=== PATIENT | female | born 1965 | race Caucasian/White ===

== ENCOUNTER → 2016-07-19 | Outpatient (CLI) | payer BC ==
--- NOTE | 2016-07-19 16:58 | MAMMOGRAPHY REPORT ---
BILATERAL DIGITAL SCREENING MAMMOGRAM TOMOSYNTHESIS WITH CAD: 07/19/2016 CLINICAL HISTORY: Routine screening. Patient has no complaints. TECHNIQUE: Breast tomosynthesis in addition to standard 2D mammography was performed. Current study was also evaluated with a Computer Aided Detection (CAD) system. COMPARISON: Comparison is made to exams dated: 07/14/2015 mammogram and 11/02/2009 mammogram - [facility]. BREAST COMPOSITION: There are scattered areas of fibroglandular density in both breasts. FINDINGS: No suspicious masses, calcifications, or areas of architectural distortion are noted in e ither breast. There has been no significant interval change compared to prior exams. IMPRESSION: ACR BI-RADS CATEGORY 1: NEGATIVE There is no mammographic evidence of malignancy. A 1 year screening mammogram is recommended. The p atient will receive written notification of the results. Approximately 10% of breast cancers are not detected with mammography. A negative mammographic repor t should not delay biopsy if a clinically suggestive mass is present. Jing Bergman M.D. ah/:07/19/2016 15:58:47 Coin Rolling Machine Operator: Ilene Galdamez RT(R)(M), [facility] letter sent: Normal 1/2 BI-RADS Code: ACR BI-RADS Category 1: Negative
== END | disposition home or self-care (01) ==
LOC: C.MAMM 07:45
PROVIDERS: ATTEND Obstetrics & Gynecology
DX: Z12.31 Encounter for screening mammogram for malignant neoplasm of breast (principal)

== ENCOUNTER → 2016-09-26 | Outpatient (CLI) | payer BC ==
[2016-10-02 21:29] LABS: ANTI-CENTROMERE AB <1.0 NEG AI (<1.0 NEG); ANTI-SS-A <1.0 NEG AI (<1.0 NEG); ANTI-SS-B <1.0 NEG AI (<1.0 NEG); DNA ds CRITHIDIA NEGATIVE (NEGATIVE); MICROSOMAL AB <1 IU/ML (<9); Sm Antibody <1.0 NEG AI (<1.0 NEG)
== END | disposition home or self-care (01) ==
LOC: C.LAB 08:31
PROVIDERS: ATTEND Internal Medicine Rheumatology
DX: I73.00 Raynaud's syndrome without gangrene (principal); M79.89 Other specified soft tissue disorders

== ENCOUNTER → 2017-01-26 | Outpatient (CLI) | payer BC | END | disposition home or self-care (01) | LOC: C.PAPS 14:31 | PROVIDERS: ATTEND Obstetrics & Gynecology | DX: Z01.419 Encounter for gynecological examination (general) (routine) without abnormal findings (principal) ==

== ENCOUNTER → 2017-07-24 | Outpatient (CLI) | payer OTHER ==
--- NOTE | 2017-07-25 15:06 | MAMMOGRAPHY REPORT ---
BILATERAL DIGITAL SCREENING MAMMOGRAM TOMOSYNTHESIS WITH CAD: 07/24/2017 CLINICAL HISTORY: Routine screening. Patient has no complaints. TECHNIQUE: Breast tomosynthesis in addition to standard 2D mammography was performed. Current study was also evaluated with a Computer Aided Detection (CAD) system. COMPARISON: Comparison is made to exams dated: 07/19/2016 mammogram, 07/14/2015 mammogram, and 0 mammogram - [facility]. BREAST COMPOSITION: There are scattered areas of fibroglandular density in both breasts. FINDINGS: The parenchymal pattern is unchanged. No developing mass, architectural distortion or clus ter of suspicious microcalcifications is seen in either breast. IMPRESSION: ACR BI-RADS CATEGORY 2: BENIGN There is no mammographic evidence of malignancy. A 1 year screening mammogram is recommended. The pa tient will receive written notification of the results. Approximately 10% of breast cancers are not detected with mammography. A negative mammographic report should not delay biopsy if a clinically suggestive mass is present. Alyssa Hanley M.D. ay/:07/24/2017 15:32:23 [place]: Marline CANO(Donnell)(Irene), [facility] letter sent: Normal 1/2 BI-RADS Code: ACR BI-RADS Category 2: Benign
== END | disposition home or self-care (01) ==
LOC: C.MAMM 07:55
PROVIDERS: ATTEND Obstetrics & Gynecology
DX: Z12.31 Encounter for screening mammogram for malignant neoplasm of breast (principal)

== ENCOUNTER 2024-02-27 21:27 | Inpatient (IN) ==
--- NOTE | 2024-02-27 22:46 | Emergency Department Note ---
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 She initially had some fuzzy and blurry vision. She went to her eye doctor and had a dilated eye exam and pressure testing and everything was okay. She was sent to our ER for the possibility of an ischemic event. Brain MRI and MRI of her right globe were essentially unrevealing. She was discharged. The patient presents back as the vision has worsened. Now she has hardly any vision from the right eye except for the very center of the vision. Her central vision seems green. She also has a slight posterior headache. She does not want any pain medication. There has been no difficulty with speech, she does not have arm or leg weakness. 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 PMHx/PSHx/Social Hx: See Below PHYSICAL EXAM: GENERAL: Patient is in no acute distress. HEENT: No acute trauma, normocephalic atraumatic, mucous membranes moist, no nasal congestion. Both pupils are fairly large and react to light although the right side seems a bit slow to respond to light and there is a slight afferent defect present. Eyegrounds on the right seem intact, I do not see findings of papilledema. NECK: No stridor, no adenopathy, no meningismus, trachea is midline. LUNGS: Clear to auscultation bilaterally, no wheeze, no rhonchi, breath sounds equal. HEART: Without murmurs gallops or rubs, regular rate and rhythm. ABDOMEN: Soft, nontender, no peritonitis. EXTREMITIES: No cyanosis, full range of motion of all the joints without pain or difficulty. NEUROLOGIC: Oriented x 3, no acute motor or sensory deficits, no focal weakness. No speech slur. SKIN: No jaundice, no diaphoresis. DIFFERENTIAL DIAGNOSIS: Retinal detachment, papilledema, optic neuritis, ocular migraine, stroke, among others. EMERGENCY DEPARTMENT PROCEDURES: Visual acuity was 20/25 on the left and 20/100 on the right. Retinal scan was performed and there were no significant abnormalities to the retina per my review. MEDICAL DECISION MAKING: The laboratory work from earlier today was reviewed. There was a normal white count and hemoglobin. There was a normal platelet count. There was no coagulopathy. Creatinine was mildly elevated although at her baseline. No electrolyte abnormality in need of emergent correction. There was no concerning liver enzyme elevation. MRI of the brain and right globe were performed earlier today and were read as essentially unremarkable. Given the persistent headache, a brain CT was done during this ED visit, there was no acute bleed or mass effect. On exam, the patient appeared to have an afferent defect to the right pupil by my testing. This would indicate the possibility of optic neuritis and could explain her visual disturbance. I did perform a retinal scan/Opta scan. There was no significant retinal abnormality per my review. The blood flow appeared adequate. Visual acuity was decreased by our testing in the right eye when compared to the left. I did discuss the case with Dr. Mills of neurology. I spoke with ophthalmology at [facility] as there was no heavy truck technician available from our facility. For now, hospitalization and further workup was felt warranted. I did speak with case management, the on-call hospitalist was consulted. I talked to the patient about all her findings. Of note, the patient was given IV saline 1 L. She was given 6 mg of IV Decadron. She is currently resting comfortably. Prior/Outside records/notes reviewed: Today's ED visit note describing her presentation, workup and plan outpatient. Imaging/x-ray results per my interpretation: Chronic Medical/Social conditions affecting care: None Care/Management discussed with: Neurology-Dr. Mills. Ophthalmology at [facility]-Dr. Gupta. Case management and the on-call hospitalist. Level of care consideration(s): After review of the information above and other included data: --I believe the patient requires escalation of care to admission DISPOSITION: Admission Past Med/Surg History Problem List (Updated 02/28/24 @ 02:17 by Eleazar Pritchard MD) Afferent pupillary defect of right eye (Acute) Headache (Acute) Visual disturbance (Acute) Alteration in vision (Acute) LFT elevation Arthritis Cyst of soft tissue Scleral injection Skin lesions HTN (hypertension) Chronic kidney disease, stage 3a Menopausal symptoms At increased risk for malignant neoplasm of breast MEHRDAD ANTOINE IS 29.7% Breast cancer screening, high risk patient Family history of malignant neoplasm of breast Scattered fibroglandular tissue density of both breasts on mammography Mild obstructive sleep apnea Insomnia Sleep disturbance Other hypersomnia Colon cancer screening Encounter for IUD insertion Medical History Factor 5 Leiden mutation, heterozygous sister had hx clot to brain and mom had DVT Surgical History (Updated 02/07/24 @ 09:36 by Melodie Pollard RN) Hx of biopsy (02/05/24) FINAL DIAGNOSIS In office procedure Dr. Duncan Skin, right lower extremity nodule, excision: - Panniculitis suggestive of erythema nodosum (given clinical history Hx of colonoscopy Unknown date History of arthroscopy right knee H/O section x1 S/P tooth extraction Family History Mother TIA (transient ischemic attack) Superficial thrombophlebitis Hypertension Macular degeneration Clotting disorder Sister Superficial thrombophlebitis Breast cancer, Onset Age: 70 Clotting disorder Father Heart failure Coronary heart disease Prostate cancer, Onset Age: 70 Myocardial infarction Heart disease Hypertension Grandfather (Maternal) Coronary heart disease Grandfather (Paternal) Coronary heart disease Grandmother (Maternal) Breast cancer Uncle Breast cancer PATERNAL Grandfather Stroke Other H/O varicella Osteoporosis Denies family history of Ovarian cancer Social History Smoking Status: Former smoker Age Quit Using Tobacco: 28; Second Hand Exposure: No; Do You Dip or Chew Tobacco: No; Hx Alcohol Use: Yes Alcohol type: beer and wine Alcohol Intake Frequency: 4 or More x per/Week Hx Substance Use: No Preferred Language: Azerbaijani Communication Ability: Effective Visual Impairment: Severely Limited Hearing Ability: Normal Washing Machine Repairer Required: No Beliefs That Will Affect Care: None marital status: Current Living Situation: Spouse current occupational status: employed 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 How many Children do You have: 2 Feels Safe at Home: Yes Diet: regular caffeine: Yes (2 cups daily) during the past year weight has: increased > 10 lbs Dental Care, Regularly: Yes Physical Activity Frequency: 3-4 Times per Week Seatbelt Use: always Do you think of yourself as: straight/heterosexual Gender Identity: Female Assistive Devices: Contacts and Glasses Allergies Allergies Allergy/AdvReac Type Severity Reaction Status Date / Time thimerosal Allergy Intermediate Rash Verified 02/21/24 15:21 doxycycline AdvReac Intermediate Vomiting Verified 02/21/24 15:21 spinach AdvReac Mild Vomiting Verified 02/21/24 15:21 Home Meds Home Medications Medication Instructions Recorded Confirmed calcium 500 mg 1 tab PO BID 02/04/21 02/28/24 (carb,gluconate)-magnesium 250 mg (gluc,oxide) tablet (Calcium Magnesium) losartan 100 mg tablet 100 mg PO QAM 10/24/23 02/28/24 hydroxyzine HCl 25 mg tablet 37.5 mg PO HS 02/28/24 02/28/24 magnesium 250 mg tablet 250 mg PO BID 02/28/24 02/28/24 metoprolol succinate 50 mg 50 mg PO QAM 02/28/24 02/28/24 tablet,extended release 24 hr minocycline 50 mg capsule 50 mg PO BID 02/28/24 02/28/24 omega-3s 360 ge-fuy-khr-fish oil 1 cap PO AMPM 02/28/24 02/28/24 1,200 mg-D3 1,000 unit capsule (Fish Oil-Vit D3) prednisolone acetate 1 % eye 1 drp OPR .PT HOLDING 02/28/24 02/28/24 drops,suspension prednisone 10 mg tablet 15 mg PO QAM 02/28/24 02/28/24 Results & Data (ED) Vital Signs Vital Signs - 24 hr 02/27/24 21:31 02/27/24 23:51 02/28/24 00:11 Temperature 36.3 C L Temperature Source Oral Pulse Rate 61 56 L Pulse Rate [Apical] 55 L Pulse Rate from SpO2 Sensor Respiratory Rate 16 Respiratory Effort / Characteristics Non-Labored Respiratory Depth Normal Respiratory Pattern Regular Blood Pressure 150/90 H Blood Pressure [Left Arm] 128/77 Blood Pressure Mean 110 Blood Pressure Mean [Left Arm] 94 Pulse Oximetry 96 100 Oxygen Delivery Method Room Air Room Air Sepsis Recent Fever Within 48 Hours No Sepsis New/Unexplained Change in Mental Status No Sepsis Action Taken by Nursing No Action Required 02/28/24 00:27 02/28/24 01:00 Temperature Temperature Source Pulse Rate 55 L 58 L Pulse Rate [Apical] Pulse Rate from SpO2 Sensor 56 L 58 L Respiratory Rate 17 18 Respiratory Effort / Characteristics Respiratory Depth Respiratory Pattern Blood Pressure 129/81 Blood Pressure [Left Arm] Blood Pressure Mean 97 Blood Pressure Mean [Left Arm] Pulse Oximetry 98 98 Oxygen Delivery Method Room Air Room Air Sepsis Recent Fever Within 48 Hours Sepsis New/Unexplained Change in Mental Status Sepsis Action Taken by Jail Medications Current Medication List: was personally reviewed by me Laboratory Data Attestation: I reviewed the patient's lab results. Administered Medications Discontinued Medications Dexamethasone Sodium Phosphate (DexamethasonePf 10 Mg/Ml Vial) 6 mg IV NOW ONE Stop: 02/27/24 23:04 Last Admin: 02/27/24 23:45 Dose: 6 mg Documented By: POOJA Sodium Chloride (Nss) 1,000 mls @ 999 mls/hr IV .Q1H1M ONE Stop: 02/28/24 00:03 Last Infusion: 02/28/24 00:51 Dose: Infused Documented By: Admin: 02/27/24 23:45 Dose: 999 mls/hr Documented By: POOJA Imaging Data Radiologist's Impression: Head CT 02/28/24 00:40 EXAM: CT head/brain wo con CLINICAL HISTORY: headache, vision loss TECHNIQUE: An axial non-contrast CT scan of the brain was performed from the skull base to the high parietal region. One of the following dose reduction techniques was utilized for this exam: Automated exposure control, adjustment of the mA and/or kV according to patient size, and use of iterative reconstruction. COMPARISON: MRI dated 02/18/2024. FINDINGS: Brain Parenchyma: There are a few tiny ill-defined [id number] areas noted in the subcortical and deep white matter bilaterally, suggestive of microvascular ischemic changes. Normal attenuation of the cerebral hemispheres, cerebellum, and brainstem. No evidence of acute infarct, hemorrhage, or mass effect. Ventricular System: The ventricular system, cortical sulci, and basal cisterns are prominent and consistent with senile changes. No evidence of subarachnoid hemorrhage or extra-axial fluid collections. Cerebellum and Brainstem: Normal size and signal. No masses, lesions, or areas of abnormal signal. Orbits: Normal appearance of the globes, optic nerves, and extraocular muscles. No evidence of orbital masses. Sinuses: Clear paranasal sinuses. No evidence of sinusitis or mucosal thickening. Mastoid Air Cells: Clear mastoid air cells. No evidence of mastoiditis. Skull and Meninges: Normal skull morphology. IMPRESSION: 1. No evidence of any acute intracranial event on this unenhanced CT examination. Further evaluation with an MRI brain is suggested. 2. Mild age-related involutional and microvascular ischemic changes (Stable). Electronically signed by Mario Banks 02-28-2024 01:40 AM Discharge Plan Visit Data Chief Complaint: Eye Problems Stated Complaint: RT EYE LOSS OF VISION, HEADACHE ED Provider: Eleazar Pritchard Discharge Problem: Visual disturbance, Headache, Afferent pupillary defect of right eye Patient Disposition: Admitted As Inpatient Condition: Fair Forms Stand Alone Forms: My [facility] Prescriptions Prescriptions: No Action losartan 100 mg tablet 100 mg PO QAM Calcium Magnesium 500 mg calcium -250 mg Tablet 1 tab PO BID metoprolol succinate 50 mg tablet extended release 24 hr 50 mg PO QAM [id number]-epa-fish oil-D3 [Fish Oil-Vit D3] 360 mg-1,200 mg -1,000 unit Capsule 1 cap PO AMPM hydroxyzine HCl 25 mg tablet 37.5 mg PO HS minocycline 50 mg capsule 50 mg PO BID Rx Instructions: take with food prednisolone acetate 1 % drops,suspension 1 drp OPR .PT HOLDING prednisone 10 mg tablet 15 mg PO QAM magnesium 250 mg Tablet 250 mg PO BID Referrals Referrals: Abby Fritz [Primary Care Provider] - Discharge Problem: Headache Qualifiers: Headache type: unspecified Headache chronicity pattern: acute headache Intractability: not intractable Qualified Code(s): R51.9 - Headache, unspecified
[2024-02-27] MEDS: dexAMETHasone**PF** 10 MG/ML VIAL IV ONE (23:45)
[2024-02-27] MEDS: SODIUM CHLORIDE 0.9% 1,000 ML IV ONE (23:45)
--- NOTE | 2024-02-28 01:40 | CT Scan Report ---
EXAM: CT head/brain wo con CLINICAL HISTORY: headache, vision loss TECHNIQUE: An axial non-contrast CT scan of the brain was performed from the skull base to the high parietal region. One of the following dose reduction techniques was utilized for this exam: Automated exposure control, adjustment of the mA and/or kV according to patient size, and use of iterative reconstruction. COMPARISON: MRI dated 02/18/2024. FINDINGS: Brain Parenchyma: There are a few tiny ill-defined [id number]-abfhfaivl areas noted in the subcortical and deep white matter bilaterally, suggestive of microvascular ischemic changes. Normal attenuation of the cerebral hemispheres, cerebellum, and brainstem. No evidence of acute infarct, hemorrhage, or mass effect. Ventricular System: The ventricular system, cortical sulci, and basal cisterns are prominent and consistent with senile changes. No evidence of subarachnoid hemorrhage or extra-axial fluid collections. Cerebellum and Brainstem: Normal size and signal. No masses, lesions, or areas of abnormal signal. Orbits: Normal appearance of the globes, optic nerves, and extraocular muscles. No evidence of orbital masses. Sinuses: Clear paranasal sinuses. No evidence of sinusitis or mucosal thickening. Mastoid Air Cells: Clear mastoid air cells. No evidence of mastoiditis. Skull and Meninges: Normal skull morphology. IMPRESSION: 1. No evidence of any acute intracranial event on this unenhanced CT examination. Further evaluation with an MRI brain is suggested. 2. Mild age-related involutional and microvascular ischemic changes (Stable). Electronically signed by Mario Banks 02-28-2024 01:40 AM
--- NOTE | 2024-02-28 02:27 | History & Physical Report ---
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 After seeing her eye doctor in the morning within normal funduscopic examination and intraocular pressures, she was referred to the ED for assessment In the ED in the morning patient underwent an MRI of the brain which was negative except for chronic small vessel disease, and orbit MRI was negative Patient was discharged to home, but with progression of blurry vision and development of a posterior headache, she presented to the ED again this evening Physical examination and symptomatology consistent with acute optic neuritis, with blurred disc margins, decreased Disc ratio on the right side. Patient did have initial CT scan of the head without contrast which was negative for bleed We then ordered MRI of cervical spine, which showed multilevel spondylotic degenerative change, with multilevel central canal stenosis and bilateral foraminal stenosis MRI of brain without contrast was negative MRA cervical spine showed no acute vascular findings Patient had been on prednisone for question of rheumatologic process, and is presently on taper prednisone 15 mg dose Recommended dexamethasone 6 mg IV in ED, and then 6 mg IV every morning Patient had stopped aspirin 81 mg daily 1 week ago, due to gum bleeding while at the dentist, she is advised that she will be restarted on aspirin. Symptom complex included optic neuritis right eye, jaw claudication on the right, Holding oral prednisone Placing on dexamethasone IV as noted above Workup to include the following: Zhes-wzjnpa-rsyygaxp DNA, complement levels, arterial hypercoagulable workup including lupus anticoagulant, cardiolipin antibody, homocystine, and beta-2 microglobulin With history of nodular episcleritis, and spondylitic changes in spine, would be concerned about seronegative spondyloarthropathies, and will order ESR, HLA-B27, with reactive arthritis as a possible diagnosis/Adelaida's syndrome Of note, patient does have a family history of her brother with giant cell arteritis Transaminitis- Initial enzymes ALT 3-4 with follow-up to 19 and then today is 94 AST 189 with follow-up 148 and then today through his 38 initial laboratories / with follow-up 02/11 CK negative making rhabdomyolysis less likely CT scan abdomen pelvis without acute findings liver Order CMV, EBV, ceftaz profile Of note, patient has had in the outpatient setting workup by rheumatology loading negative ASMA, AMA, ANCA, MP3 and proteinase 3 Tick panel with Lyme, anaplasmosis and babesiosis smear and antibody testing negative on 02/05 Respiratory BioFire test 02/05 was negative Add parvovirus, mono, CMV and EBV testing Acute kidney injury superimposed on CKD- Creatinine 1.26, base 1.06, IV fluids as noted above, recheck laboratories in the a.m. Holding hydroxyzine, losartan, but minocycline Continue metoprolol succinate Chronic prednisone use Prednisone is going to be held, he will be placed on dexamethasone IV as noted above address optic neuritis and address potential adrenal insufficiency. History of Present Illness Chief Complaint: The patient reports that about 830 this morning, she developed acute onset of blurry vision in her right eye, and presented to her eye doctor's office for assessment. She underwent a dilated fundus examination, glaucoma testing, and reportedly no acute findings. She was then sent to the emergency department, where she had a brain MRI and orbit MRI which were negative, and she was discharged to home. Her vision continued to worsen as the day progressed, and began to develop a posterior headache, and we presented to the emergency department again this evening. Patient was thought to have an ocular migraine per neurology consult, and [facility] Primary Care Provider: Abby Fritz The patient is a 58-year-old female with a past medical history including CKD stage III AA, mild MAYELIN, insomnia, hypertension, arthritis, transaminitis. She presents to the emergency department with history as noted above. Allergies Allergy/AdvReac Type Severity Reaction Status Date / Time thimerosal Allergy Intermediate Rash Verified 02/21/24 15:21 doxycycline AdvReac Intermediate Vomiting Verified 02/21/24 15:21 spinach AdvReac Mild Vomiting Verified 02/21/24 15:21 Home Medications Medication Instructions Recorded Confirmed Type calcium 500 mg 1 tab PO BID 02/04/21 02/28/24 History (carb,gluconate)-magnesium 250 mg (gluc,oxide) tablet (Calcium Magnesium) losartan 100 mg tablet 100 mg PO QAM 10/24/23 02/28/24 History hydroxyzine HCl 25 mg tablet 37.5 mg PO HS 02/28/24 02/28/24 History magnesium 250 mg tablet 250 mg PO BID 02/28/24 02/28/24 History metoprolol succinate 50 mg 50 mg PO QAM 02/28/24 02/28/24 History tablet,extended release 24 hr minocycline 50 mg capsule 50 mg PO BID 02/28/24 02/28/24 History omega-3s 360 up-nan-rjn-fish oil 1 cap PO AMPM 02/28/24 02/28/24 History 1,200 mg-D3 1,000 unit capsule (Fish Oil-Vit D3) prednisolone acetate 1 % eye 1 drp OPR .PT HOLDING 02/28/24 02/28/24 History drops,suspension prednisone 10 mg tablet 15 mg PO QAM 02/28/24 02/28/24 History Past Med/Surg History Problem List (Updated 02/28/24 @ 06:40 by Brennen Hernandez MD) Acute kidney injury superimposed on CKD Transaminitis Polymyalgia rheumatica GCA (giant cell arteritis) Optic neuritis, right 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 (Acute) Headache (Acute) Visual disturbance (Acute) Alteration in vision (Acute) LFT elevation Arthritis Cyst of soft tissue Scleral injection Skin lesions HTN (hypertension) Chronic kidney disease, stage 3a Menopausal symptoms At increased risk for malignant neoplasm of breast MEHRDAD ANTOINE IS 29.7% Breast cancer screening, high risk patient Family history of malignant neoplasm of breast Scattered fibroglandular tissue density of both breasts on mammography Mild obstructive sleep apnea Insomnia Sleep disturbance Other hypersomnia Colon cancer screening Encounter for IUD insertion Medical History (Updated 02/28/24 @ 06:40 by Brennen Hernandez MD) Erythema nodosum Nodular episcleritis Factor 5 Leiden mutation, heterozygous sister had hx clot to brain and mom had DVT Surgical History (Updated 02/07/24 @ 09:36 by Melodie Pollard RN) Hx of biopsy (02/05/24) FINAL DIAGNOSIS In office procedure Dr. Duncan Skin, right lower extremity nodule, excision: - Panniculitis suggestive of erythema nodosum (given clinical history Hx of colonoscopy Unknown date History of arthroscopy right knee H/O section x1 S/P tooth extraction Family History Mother TIA (transient ischemic attack) Superficial thrombophlebitis Hypertension Macular degeneration Clotting disorder Sister Superficial thrombophlebitis Breast cancer, Onset Age: 70 Clotting disorder Father Heart failure Coronary heart disease Prostate cancer, Onset Age: 70 Myocardial infarction Heart disease Hypertension Grandfather (Maternal) Coronary heart disease Grandfather (Paternal) Coronary heart disease Grandmother (Maternal) Breast cancer Uncle Breast cancer PATERNAL Grandfather Stroke Other H/O varicella Osteoporosis Denies family history of Ovarian cancer Social History Smoking Status: Former smoker Age Quit Using Tobacco: 28; Second Hand Exposure: No; Do You Dip or Chew Tobacco: No; Hx Alcohol Use: Yes Alcohol type: wine Alcohol Intake Frequency: 4 or More x per/Week Hx Substance Use: No Preferred Language: Croatian Communication Ability: Effective Visual Impairment: Severely Limited Hearing Ability: Normal Instructional Interventionist Required: No Beliefs That Will Affect Care: None marital status: Current Living Situation: Spouse current occupational status: employed 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 How many Children do You have: 2 Other Information That Helps Us Care for You: No Feels Safe at Home: Yes Safety Concerns: Feels Safe At This Time Diet: regular caffeine: Yes (2 cups daily) during the past year weight has: increased > 10 lbs Dental Care, Regularly: Yes Physical Activity Frequency: 3-4 Times per Week Seatbelt Use: always Do you think of yourself as: straight/heterosexual Gender Identity: Female Assistive Devices: None Review of Systems Review of Systems: The patient denies chest pain, palpitations, shortness of breath, dyspnea on exertion, cough, lower extremity swelling, sore throat, fevers, chills, sweats, nausea, vomiting, diarrhea , constipation, abdominal pain, pelvic pain, blood in urine or stool, dysuria, urinary frequency or urgency, memory loss, loss of consciousness, rash, abnormal bruising or bleeding, imbalance, focal or generalized weakness, numbness or tingling in arms or legs, generalized arthralgias or myalgias, back or neck pain, or night sweats. The review of systems is otherwise negative other than for that already noted above, and at least 10 systems have been reviewed. Physical Exam 2 Physical Exam: The patient is awake, alert and oriented 3, well developed and well nourished, normocephalic and atraumatic, lying in bed and in no acute distress. HEENT--EOMI, mucous membranes and oropharynx dry. Pupillary examination with partially dilated pupils, with Fabián Adele pupil on the right and reversed microscopic pupil on the left Neck--supple. No JVD. No bruits. Thyroid normal, trachea midline, no adenopathy. Heart--normal S1 and S2. No murmurs, rubs or gallops. Lungs--clear bilaterally, no respiratory distress, no accessory muscle use. Abdomen--normal bowel sounds and soft. Nontender. Nondistended, no hernias or masses, no organomegaly. Extremities--no cyanosis or clubbing. No edema. There are good distal pulses b/l. Dermatologic--normal skin turgor, normal color, no abnormal lymph nodes, no rash. Neurologic--cranial nerves II through XII grossly intact. Rheumatologic--normal range of motion. Psychiatric--normal affect. Ophthalmoscopic examination--left eye with normal cup-to-disc ratio 0.4/0.4, and an sharp disc margins. Right eye with decreased cup-to-disc ratio of 0.1/ 0.1 and hazy disc margins Results & Data Results & Data Vital Signs (Past 12 Hours) Vital Signs Temp Pulse Pulse Resp BP BP Pulse Ox 02/28/24 02:00 63 16 143/88 H 96 02/28/24 01:00 58 L 18 129/81 98 02/28/24 00:27 55 L 17 98 02/28/24 00:11 56 L 02/27/24 23:51 55 L 16 128/77 100 02/27/24 21:31 36.3 C L 61 150/90 H 96 O2 Del Method 02/28/24 02:00 Room Air 02/28/24 01:00 Room Air 02/28/24 00:27 Room Air 02/28/24 00:11 02/27/24 23:51 Room Air 02/27/24 21:31 Room Air Laboratory Results Laboratory Results WBC 10.44 K/ul (4.8-10.8) 02/28/24 02:11 RBC 4.70 M/uL (4.20-5.40) 02/28/24 02:11 Hgb 13.6 g/dl (12.0-16.0) 02/28/24 02:11 Hct 42.0 % (37.0-47.0) 02/28/24 02:11 MCV 89.4 fL (80.0-100.0) 02/28/24 02:11 MCH 28.9 pg (25.0-34.0) 02/28/24 02:11 MCHC 32.4 g/dL (32.0-36.0) 02/28/24 02:11 RDW Std Deviation 45.1 fL (36.4-46.3) 02/28/24 02:11 RDW Coeff of Tao 13.9 % (11.5-14.5) 02/28/24 02:11 Plt Count 193 K/uL (130-400) 02/28/24 02:11 MPV 9.0 fL (9.4-12.4) L 02/28/24 02:11 Immature Gran % (Auto) 0.5 % 02/28/24 02:11 Neut % (Auto) 85.0 % 02/28/24 02:11 Lymph % (Auto) 10.9 % 02/28/24 02:11 [place] % (Auto) 2.4 % 02/28/24 02:11 Eos % (Auto) 0.9 % 02/28/24 02:11 Baso % (Auto) 0.3 % 02/28/24 02:11 Neut # (Auto) 8.88 K/uL (1.40-6.50) H 02/28/24 02:11 Lymph # (Auto) 1.14 K/uL (1.20-3.40) L 02/28/24 02:11 [place] # (Auto) 0.25 K/uL (0.11-0.59) 02/28/24 02:11 Eos # (Auto) 0.09 K/uL (0.00-0.50) 02/28/24 02:11 Baso # (Auto) 0.03 K/uL (0.00-0.20) 02/28/24 02:11 Immature Gran # (Auto) 0.05 K/uL (0.01-0.20) 02/28/24 02:11 ESR 21 mm/hr (0-30) 02/28/24 02:11 Sodium 141 mmol/L (136-145) 02/28/24 02:11 Potassium 4.0 mmol/L (3.5-5.1) 02/28/24 02:11 Chloride 109 mmol/L (98-107) H 02/28/24 02:11 Carbon Dioxide 26 mmol/L (21-32) 02/28/24 02:11 Anion Gap 6 (3-11) 02/28/24 02:11 BUN 17 mg/dl (6-23) 02/28/24 02:11 Creatinine 1.17 mg/dl (0.6-1.2) 02/28/24 02:11 Est Cr Clr Drug Dosing 57.7 ml/min 02/28/24 02:11 eGFR 54.43 02/28/24 02:11 BUN/Creatinine Ratio 14.5 (10-20) 02/28/24 02:11 Glucose 113 mg/dl (70-99(Fasting)) H 02/28/24 02:11 Calcium 8.8 mg/dl (8.6-10.3) 02/28/24 02:11 Magnesium 2.3 mg/dl (1.7-2.4) 02/28/24 02:11 Total Bilirubin 0.7 mg/dl (0.2-1.0) 02/28/24 02:11 AST 32 U/L (13-39) 02/28/24 02:11 ALT 83 U/L (7-52) H 02/28/24 02:11 Alkaline Phosphatase 63 U/L (34-104) 02/28/24 02:11 Total Creatine Kinase 28 U/L (26-192) 02/28/24 02:11 Total Protein 6.4 gm/dl (6.0-8.3) 02/28/24 02:11 Albumin 3.7 gm/dl (3.4-5.0) 02/28/24 02:11 Globulin 2.7 gm/dl (2.5-4.0) 02/28/24 02:11 Albumin/Globulin Ratio 1.4 (0.9-2) 02/28/24 02:11 Triglycerides 173 mg/dl (0-150) H 02/28/24 02:11 Cholesterol 190 mg/dl (0-200) 02/28/24 02:11 LDL Cholesterol, Calc 108 mg/dl 02/28/24 02:11 VLDL Cholesterol, Calc 35 mg/dl (0-30) H 02/28/24 02:11 HDL Cholesterol 47 mg/dl 02/28/24 02:11 Cholesterol/HDL Ratio 4.0 (0-5) 02/28/24 02:11 Hep Bs Antigen Negative (Negative) 02/28/24 02:11 Hepatitis C Antibody Negative (Negative) 02/28/24 02:[address] 02/28/24 00:40 EXAM: CT head/brain wo con CLINICAL HISTORY: headache, vision loss TECHNIQUE: An axial non-contrast CT scan of the brain was performed from the skull base to the high parietal region. One of the following dose reduction techniques was utilized for this exam: Automated exposure control, adjustment of the mA and/or kV according to patient size, and use of iterative reconstruction. COMPARISON: MRI dated 02/18/2024. FINDINGS: Brain Parenchyma: There are a few tiny ill-defined usq-cw-lduhzduvs areas noted in the subcortical and deep white matter bilaterally, suggestive of microvascular ischemic changes. Normal attenuation of the cerebral hemispheres, cerebellum, and brainstem. No evidence of acute infarct, hemorrhage, or mass effect. Ventricular System: The ventricular system, cortical sulci, and basal cisterns are prominent and consistent with senile changes. No evidence of subarachnoid hemorrhage or extra-axial fluid collections. Cerebellum and Brainstem: Normal size and signal. No masses, lesions, or areas of abnormal signal. Orbits: Normal appearance of the globes, optic nerves, and extraocular muscles. No evidence of orbital masses. Sinuses: Clear paranasal sinuses. No evidence of sinusitis or mucosal thickening. Mastoid Air Cells: Clear mastoid air cells. No evidence of mastoiditis. Skull and Meninges: Normal skull morphology. IMPRESSION: 1. No evidence of any acute intracranial event on this unenhanced CT examination. Further evaluation with an MRI brain is suggested. 2. Mild age-related involutional and microvascular ischemic changes (Stable). Electronically signed by Mario Banks 02-28-2024 01:40 AM Cervical Spine MRI 02/28/24 02:06 EXAM: MR cervical spine wo con CLINICAL HISTORY: right eye loss of vision that started around 5 am on 02/26. patient was in the ED on 02/26 and had MRI brain/orbits done. patient returned to ED stating symptoms are worsening. pain posterior head. no known recent injury. CT head 02/27. MRI brain and orbits 02/26. IMAGES 211 ROOM A9B TECHNIQUE: MRI of the cervical spine was performed without contrast. Sequences obtained include sagittal T1-weighted, T2-weighted, and axial T1, T2-weighted sequences. COMPARISON: None. FINDINGS: Vertebral Alignment: A straightened cervical curve implies an element of muscle spasm. Normal alignment of the cervical spine without evidence of fracture or subluxation. Vertebral Bodies and Intervertebral Discs: Multilevel reduced intervertebral disc height and hydration are noted. Anteromarginal bone hypertrophy of vertebral end plates. Multilevel C4, C5, and C7 fatty subchondral degenerative changes (MODIC II). C6 mixed oedematous and fatty subchondral degenerative changes (MODIC I, II). Normal vertebral body height and alignment. Iatad-cr-fnoff analysis: C2-C3: There is no significant disc pathology. Normal morphology of the ligamentum flava. No arthropathy of the uncovertebral and zygapophyseal joints. No significant spinal canal stenosis C3-C4: posterior disc bulge inclined to the left side, measuring 2.7 mm, indenting the theca, along with osteophyte complex and neurocentral arthropathy causing mild central spinal canal, left moderate and right mild foraminal stenosis, compressing the left exiting nerve roots. Normal morphology of the ligamentum flava. No arthropathy of zygapophyseal joints. C4-C5: posterior disc bulge inclined to the right side with a right foraminal protrusion, measuring 2.2 mm, indenting the theca, along with osteophyte complex and neurocentral arthropathy causing mild central spinal canal, right moderate and left mild foraminal stenosis, compressing the right exiting nerve roots. Normal morphology of the ligamentum flava. No arthropathy of zygapophyseal joints. C5-C6: posterior disc bulge, measuring 2.4 mm, indenting the theca, along with osteophyte complex and neurocentral arthropathy causing mild central spinal canal, Bilateral mild to moderate foraminal stenosis, indenting the exiting nerve roots. Normal morphology of the ligamentum flava. No arthropathy of zygapophyseal joints. C6-C7: posterior disc bulge inclined to the left side, measuring 2.2 mm, indenting the theca, along with osteophyte complex and neurocentral arthropathy causing mild central spinal canal, left moderate and right mild foraminal stenosis, compressing the left exiting nerve roots. Normal morphology of the ligamentum flava. No arthropathy of zygapophyseal joints. C7-T1: There is no significant disc pathology. Normal morphology of the ligamentum flava. No arthropathy of the uncovertebral and zygapophyseal joints. No significant spinal canal stenosis. Spinal Cord and Nerve Roots: The spinal cord demonstrates normal signal intensity and caliber. No evidence of cord compression or intradural pathology. Soft Tissues: Paraspinal soft tissues appear normal without evidence of abnormal signal intensity or mass lesions. IMPRESSION: 1. A straightened cervical curve implies an element of muscle spasm. 2. Multilevel C4, C5, and C7 fatty subchondral degenerative changes (MODIC II).C6 mixed oedematous and fatty subchondral degenerative changes (MODIC I, II). 3. Advanced spondylodegenerative changes of the cervical spine, with multilevel disc bulges/osteophyte complex, together with neurocentral arthropathic changes, causing multilevel of the central canal and bilateral foraminal stenosis, as above described. Electronically signed by Mario Banks 02-28-2024 04:32 AM Head MRA 02/28/24 02:06 EXAM: MR angio head wo con CLINICAL HISTORY: right eye loss of vision that started around 5 am on 02/26. patient was in the ED on 02/26 and had MRI brain/orbits done. patient returned to ED stating symptoms are worsening. pain posterior head. no known recent injury. CT head 02/27. MRI brain and orbits 02/26. images 527 room A9B TECHNIQUE: MR angiography of the head ([place]) was performed by 3D TOF technique. MPR images were obtained. COMPARISON: the CT02/27/2024, and MRI 02/18/2024 have been reviewed. FINDINGS: Intracranial Arteries: Normal visualization of the intracranial arteries. No evidence of stenosis, occlusion, or aneurysms. Normal flow signal in the anterior, middle, and posterior cerebral arteries. Normal flow signal in the basilar and vertebral arteries. 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 Hypoplastic A1 of the left GILL. Complete and normally configured [place]. No evidence of vascular malformations or aneurysms. Venous Sinuses: Normal visualization of the major dural venous sinuses. No evidence of venous sinus thrombosis. IMPRESSION: 1. Normal MRA of the head without contrast. 2. No evidence of significant vascular abnormalities. Electronically signed by Mario Banks 02-28-2024 04:09 AM Neck MRA 02/28/24 02:06 EXAM: MR angio neck wo/w con CLINICAL HISTORY: right eye loss of vision that started around 5 am on 02/26. patient was in the ED on 02/26 and had MRI brain/orbits done. patient returned to ED stating symptoms are worsening. pain posterior head. no known recent injury. injected 8cc gadavist through existing iv right arm uneventful at 0400. CT head 02/27. MRI brain and orbits 02/26. images 943 had a coil issue when doing carotids. unable to correct for signal loss during carotid exam. best scan possible at this time. TECHNIQUE: Multiplanar Angiography imaging was performed using [id number] (TOF) sequences and post-contrast sequences. Intravenous 8cc Gadavist contrast was administered. COMPARISON: None. FINDINGS: Carotid Arteries: Normal visualization of the common carotid arteries, internal carotid arteries, and external carotid arteries bilaterally. No evidence of stenosis, occlusion, or aneurysm. Normal flow signal. Normal enhancement post-contrast. Vertebral Arteries: Normal visualization of the vertebral arteries bilaterally. No evidence of stenosis, occlusion, or aneurysm. Normal flow signal. Normal enhancement post-contrast. Dominant left one. Subclavian Arteries: Normal visualization of the subclavian arteries bilaterally. No evidence of stenosis, occlusion, or aneurysm. Normal enhancement post-contrast. IMPRESSION: 1. Unremarkable MRA of the neck with and without contrast. 2. No evidence of significant vascular abnormalities. 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
[2024-02-28 02:35] LABS: Basophils # (auto) 0.03 K/uL (0.00-0.20); Basophils % (auto) 0.3 %; Eosinophils # (auto) 0.09 K/uL (0.00-0.50); Eosinophils % (auto) 0.9 %; Hemoglobin 13.6 g/dl (12.0-16.0); Immature Granulocytes # (auto) 0.05 K/uL (0.01-0.20); Immature Granulocytes % (auto) 0.5 %; Lymphocytes # (auto) 1.14 K/uL (1.20-3.40); Lymphocytes % (auto) 10.9 %; Mean Corpuscular Hemoglobin 28.9 pg (25.0-34.0); Mean Corpuscular Hgb Conc 32.4 g/dL (32.0-36.0); Mean Corpuscular Volume 89.4 fL (80.0-100.0); Monocytes # (auto) 0.25 K/uL (0.11-0.59); Monocytes % (auto) 2.4 %; Neutrophils # (auto) 8.88 K/uL (1.40-6.50); Platelet Count 193 K/uL (130-400); RDW Coefficient of Variation 13.9 % (11.5-14.5); RDW Standard Deviation 45.1 fL (36.4-46.3); White Blood Count 10.44 K/ul (4.8-10.8)
[2024-02-28] MEDS: ASPIRIN 81 MG ECTAB PO STA (02:36)
[2024-02-28 02:56] LABS: Albumin Globulin Ratio 1.4 (0.9-2); Albumin Level 3.7 gm/dl (3.4-5.0); BUN Creatinine Ratio 14.5 (10-20); Bilirubin,Total 0.7 mg/dl (0.2-1.0); Calcium 8.8 mg/dl (8.6-10.3); Creatinine Clr Calc Pharmacy 57.7 ml/min; Globulin 2.7 gm/dl (2.5-4.0); Magnesium 2.3 mg/dl (1.7-2.4); Total Protein 6.4 gm/dl (6.0-8.3)
[2024-02-28 03:25] LABS: Hep B Surface Ag with confirm Negative (Negative)
[2024-02-28 03:31] LABS: Hep C Ab Rflx HepCQuant RNA Negative (Negative)
[2024-02-28] MEDS: GADOBUTROL 65ML VIAL IV ONE (04:01)
--- NOTE | 2024-02-28 04:09 | Magnetic Resonance Report ---
EXAM: MR angio head wo con CLINICAL HISTORY: right eye loss of vision that started around 5 am on 02/26. patient was in the ED on 02/26 and had MRI brain/orbits done. patient returned to ED stating symptoms are worsening. pain posterior head. no known recent injury. CT head 02/27. MRI brain and orbits 02/26. images 527 room A9B TECHNIQUE: MR angiography of the head ([place]) was performed by 3D TOF technique. MPR images were obtained. COMPARISON: the CT02/27/2024, and MRI 02/18/2024 have been reviewed. FINDINGS: Intracranial Arteries: Normal visualization of the intracranial arteries. No evidence of stenosis, occlusion, or aneurysms. Normal flow signal in the anterior, middle, and posterior cerebral arteries. Normal flow signal in the basilar and vertebral arteries. 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 Hypoplastic A1 of the left GILL. Complete and normally configured [place]. No evidence of vascular malformations or aneurysms. Venous Sinuses: Normal visualization of the major dural venous sinuses. No evidence of venous sinus thrombosis. IMPRESSION: 1. Normal MRA of the head without contrast. 2. No evidence of significant vascular abnormalities. Electronically signed by Mario Banks 02-28-2024 04:09 AM
--- NOTE | 2024-02-28 04:32 | Magnetic Resonance Report ---
EXAM: MR cervical spine wo con CLINICAL HISTORY: right eye loss of vision that started around 5 am on 02/26. patient was in the ED on 02/26 and had MRI brain/orbits done. patient returned to ED stating symptoms are worsening. pain posterior head. no known recent injury. CT head 02/27. MRI brain and orbits 02/26. IMAGES 211 ROOM A9B TECHNIQUE: MRI of the cervical spine was performed without contrast. Sequences obtained include sagittal T1-weighted, T2-weighted, and axial T1, T2-weighted sequences. COMPARISON: None. FINDINGS: Vertebral Alignment: A straightened cervical curve implies an element of muscle spasm. Normal alignment of the cervical spine without evidence of fracture or subluxation. Vertebral Bodies and Intervertebral Discs: Multilevel reduced intervertebral disc height and hydration are noted. Anteromarginal bone hypertrophy of vertebral end plates. Multilevel C4, C5, and C7 fatty subchondral degenerative changes (MODIC II). C6 mixed oedematous and fatty subchondral degenerative changes (MODIC I, II). Normal vertebral body height and alignment. Kxngc-ap-[id number] analysis: C2-C3: There is no significant disc pathology. Normal morphology of the ligamentum flava. No arthropathy of the uncovertebral and zygapophyseal joints. No significant spinal canal stenosis C3-C4: posterior disc bulge inclined to the left side, measuring 2.7 mm, indenting the theca, along with osteophyte complex and neurocentral arthropathy causing mild central spinal canal, left moderate and right mild foraminal stenosis, compressing the left exiting nerve roots. Normal morphology of the ligamentum flava. No arthropathy of zygapophyseal joints. C4-C5: posterior disc bulge inclined to the right side with a right foraminal protrusion, measuring 2.2 mm, indenting the theca, along with osteophyte complex and neurocentral arthropathy causing mild central spinal canal, right moderate and left mild foraminal stenosis, compressing the right exiting nerve roots. Normal morphology of the ligamentum flava. No arthropathy of zygapophyseal joints. C5-C6: posterior disc bulge, measuring 2.4 mm, indenting the theca, along with osteophyte complex and neurocentral arthropathy causing mild central spinal canal, Bilateral mild to moderate foraminal stenosis, indenting the exiting nerve roots. Normal morphology of the ligamentum flava. No arthropathy of zygapophyseal joints. C6-C7: posterior disc bulge inclined to the left side, measuring 2.2 mm, indenting the theca, along with osteophyte complex and neurocentral arthropathy causing mild central spinal canal, left moderate and right mild foraminal stenosis, compressing the left exiting nerve roots. Normal morphology of the ligamentum flava. No arthropathy of zygapophyseal joints. C7-T1: There is no significant disc pathology. Normal morphology of the ligamentum flava. No arthropathy of the uncovertebral and zygapophyseal joints. No significant spinal canal stenosis. Spinal Cord and Nerve Roots: The spinal cord demonstrates normal signal intensity and caliber. No evidence of cord compression or intradural pathology. Soft Tissues: Paraspinal soft tissues appear normal without evidence of abnormal signal intensity or mass lesions. IMPRESSION: 1. A straightened cervical curve implies an element of muscle spasm. 2. Multilevel C4, C5, and C7 fatty subchondral degenerative changes (MODIC II).C6 mixed oedematous and fatty subchondral degenerative changes (MODIC I, II). 3. Advanced spondylodegenerative changes of the cervical spine, with multilevel disc bulges/osteophyte complex, together with neurocentral arthropathic changes, causing multilevel of the central canal and bilateral foraminal stenosis, as above described. Electronically signed by Mario Banks 02-28-2024 04:32 AM
[2024-02-28] MEDS ORDERED: prednisoLONE acetate 1% OP SUSP 5 ML BTL OPR SCH (04:44)
[2024-02-28] MEDS ORDERED: ACETAMINOPHEN 325 MG TAB PO PRN (04:44)
[2024-02-28] MEDS ORDERED: [UNRECOGNIZED DRUG - OTHER] PO SCH (04:44)
[2024-02-28] MEDS: dexAMETHasone 6 MG in SYRINGE 0 ML IV SCH (05:29)
--- NOTE | 2024-02-28 05:29 | Magnetic Resonance Report ---
EXAM: MR angio neck wo/w con CLINICAL HISTORY: right eye loss of vision that started around 5 am on 02/26. patient was in the ED on 02/26 and had MRI brain/orbits done. patient returned to ED stating symptoms are worsening. pain posterior head. no known recent injury. injected 8cc gadavist through existing iv right arm uneventful at 0400. CT head 02/27. MRI brain and orbits 02/26. images 943 had a coil issue when doing carotids. unable to correct for signal loss during carotid exam. best scan possible at this time. TECHNIQUE: Multiplanar Angiography imaging was performed using cxmv-sl-aphlal (TOF) sequences and post-contrast sequences. Intravenous 8cc Gadavist contrast was administered. COMPARISON: None. FINDINGS: Carotid Arteries: Normal visualization of the common carotid arteries, internal carotid arteries, and external carotid arteries bilaterally. No evidence of stenosis, occlusion, or aneurysm. Normal flow signal. Normal enhancement post-contrast. Vertebral Arteries: Normal visualization of the vertebral arteries bilaterally. No evidence of stenosis, occlusion, or aneurysm. Normal flow signal. Normal enhancement post-contrast. Dominant left one. Subclavian Arteries: Normal visualization of the subclavian arteries bilaterally. No evidence of stenosis, occlusion, or aneurysm. Normal enhancement post-contrast. IMPRESSION: 1. Unremarkable MRA of the neck with and without contrast. 2. No evidence of significant vascular abnormalities. Electronically signed by Mario Banks 02-28-2024 05:28 AM
[2024-02-28 07:25] LABS: Estimated Average Glucose 126 mg/dl
[2024-02-28] MEDS: MAGNESIUM OXIDE 400 MG TAB PO SCH (08:44)
[2024-02-28] MEDS: METOPROLOL SUCC 50MG EXT REL TAB PO SCH (08:44)
[2024-02-28] MEDS ORDERED: NON-FORMULARY MEDICATION (Calcium Carb,Gluc-Mag Gluc,Ox [Calcium Magnesium] 500 mg calcium PO SCH (09:00)
--- NOTE | 2024-02-28 09:29 | Neurology Consultation ---
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 no pain with eye movements. CRP very high. pt with rAPD rt eye. pt with interestingly had covid infection in Dec 2023 and she feels everything went bad since then with joint pain and yesterday with acute gradual painless vision loss on rt eye. mri orbit and mri brain all negative. MRA head/neck negative. pt this morning only seeing light on rt eye and no vision even on finger counting. chart reviewed. admission: The patient reports that about 830 this morning, she developed acute onset of blurry vision in her right eye, and presented to her eye doctor's office for assessment. She underwent a dilated fundus examination, glaucoma testing, and reportedly no acute findings. She was then sent to the emergency department, where she had a brain MRI and orbit MRI which were negative, and she was discharged to home. Her vision continued to worsen as the day progressed, and began to develop a posterior headache, and we presented to the emergency department again this evening. Patient was thought to have an ocular migraine per neurology consult, and [facility]. Primary Care Provider: Abby Fritz The patient is a 58-year-old female with a past medical history including CKD stage III AA, mild MAYELIN, insomnia, hypertension, arthritis, transaminitis. She presents to the emergency department with history as noted above. Allergies Allergy/AdvReac Type Severity Reaction Status Date / Time thimerosal Allergy Intermediate Rash Verified 02/21/24 15:21 doxycycline AdvReac Intermediate Vomiting Verified 02/21/24 15:21 spinach AdvReac Mild Vomiting Verified 02/21/24 15:21 Home Medications Medication Instructions Recorded Confirmed Type calcium 500 mg 1 tab PO BID 02/04/21 02/28/24 History (carb,gluconate)-magnesium 250 mg (gluc,oxide) tablet (Calcium Magnesium) losartan 100 mg tablet 100 mg PO QAM 10/24/23 02/28/24 History hydroxyzine HCl 25 mg tablet 37.5 mg PO HS 02/28/24 02/28/24 History magnesium 250 mg tablet 250 mg PO BID 02/28/24 02/28/24 History metoprolol succinate 50 mg 50 mg PO QAM 02/28/24 02/28/24 History tablet,extended release 24 hr minocycline 50 mg capsule 50 mg PO BID 02/28/24 02/28/24 History omega-3s 360 gn-mtc-kyd-fish oil 1 cap PO AMPM 02/28/24 02/28/24 History 1,200 mg-D3 1,000 unit capsule (Fish Oil-Vit D3) prednisolone acetate 1 % eye 1 drp OPR .PT HOLDING 02/28/24 02/28/24 History drops,suspension prednisone 10 mg tablet 15 mg PO QAM 02/28/24 02/28/24 History Patient History Medical History (Updated 02/28/24 @ 06:40 by Brennen Hernandez MD) Erythema nodosum Nodular episcleritis Factor 5 Leiden mutation, heterozygous sister had hx clot to brain and mom had DVT Surgical History (Updated 02/07/24 @ 09:36 by Melodie Pollard RN) Hx of biopsy (02/05/24) FINAL DIAGNOSIS In office procedure Dr. Duncan Skin, right lower extremity nodule, excision: - Panniculitis suggestive of erythema nodosum (given clinical history Hx of colonoscopy Unknown date History of arthroscopy right knee H/O section x1 S/P tooth extraction Family History Mother TIA (transient ischemic attack) Superficial thrombophlebitis Hypertension Macular degeneration Clotting disorder Sister Superficial thrombophlebitis Breast cancer, Onset Age: 70 Clotting disorder Father Heart failure Coronary heart disease Prostate cancer, Onset Age: 70 Myocardial infarction Heart disease Hypertension Grandfather (Maternal) Coronary heart disease Grandfather (Paternal) Coronary heart disease Grandmother (Maternal) Breast cancer Uncle Breast cancer PATERNAL Grandfather Stroke Other H/O varicella Osteoporosis Denies family history of Ovarian cancer Social History Smoking Status: Former smoker Age Quit Using Tobacco: 28; Second Hand Exposure: No; Do You Dip or Chew Tobacco: No; Hx Alcohol Use: Yes Alcohol type: wine Alcohol Intake Frequency: 4 or More x per/Week Hx Substance Use: No Preferred Language: [place] Communication Ability: Effective Visual Impairment: Severely Limited Hearing Ability: Normal Soil Science Professor Required: No Beliefs That Will Affect Care: None marital status: Current Living Situation: Spouse current occupational status: employed 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 How many Children do You have: 2 Other Information That Helps Us Care for You: No Feels Safe at Home: Yes Safety Concerns: Feels Safe At This Time Diet: regular caffeine: Yes (2 cups daily) during the past year weight has: increased > 10 lbs Dental Care, Regularly: Yes Physical Activity Frequency: 3-4 Times per Week Seatbelt Use: always Do you think of yourself as: straight/heterosexual Gender Identity: Female Assistive Devices: None Exam (Neuro) Physical Exam: HEENT: normocephalic grossly Neuro: Mental: AOx4, fluent speech, normal comprehension, no apraxia, no L/R confusion, no neglect CN: dilated 5 mm b/l but reactive with noted for sluggish rt pupil response with rAPD. left pupil brisk responses. no vision on rt eye with only able to see some dull light perception. 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 interestingly, there are few case reports of covid infection related triggering arteritic AION. Recommendations: pt on steroid tx. continue work up and tx as now. rheum consult and ophthalmology consult in the near future. not much add from neurology as this is a rheumatological condition call again if new question. Chart reviewed I have spent more than 50% educating patient about potential diagnosis and neurological evaluation and coordinating care with patient's treatment team. Total time spent (including chart review and coordination of care): 60 min (this includes chart review). Results & Data Vital Signs (Past 12 Hours) Vital Signs Temp Pulse Pulse Resp BP BP Pulse Ox 02/28/24 07:15 58 L 02/28/24 07:05 36.4 C L 65 16 114/75 98 02/28/24 04:44 36.5 C 65 16 124/84 98 02/28/24 04:40 65 02/28/24 04:35 02/28/24 04:35 36.5 C 60 18 124/84 98 02/28/24 02:30 65 17 110/77 96 02/28/24 02:19 60 17 133/86 97 02/28/24 02:00 63 16 143/88 H 96 02/28/24 01:00 58 L 18 129/81 98 02/28/24 00:27 55 L 17 98 02/28/24 00:11 56 L 02/27/24 23:51 55 L 16 128/77 100 02/27/24 21:31 36.3 C L 61 150/90 H 96 O2 Del Method 02/28/24 07:15 02/28/24 07:05 Room Air 02/28/24 04:44 Room Air 02/28/24 04:40 02/28/24 04:35 Room Air 02/28/24 04:35 Room Air 02/28/24 02:30 Room Air 02/28/24 02:19 Room Air 02/28/24 02:00 Room Air 02/28/24 01:00 Room Air 02/28/24 00:27 Room Air 02/28/24 00:11 02/27/24 23:51 Room Air 02/27/24 21:31 Room Air PG Care Time/CCT Total # of Minutes Spent Total Time Spent with Patient: Total time spent is greater than 50% in coordination of care (as documented) at patient's floor/unit and/or counseling patient: Coding Level of Care Code 60780 IN/OBS CONSULT LVL 4,60M Diagnoses 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
--- NOTE | 2024-02-28 13:11 | Communication Note ---
Date of Service: February 28, 2024 Vision may be a little poorer than yesterday - only has slight vision R periphery, no longer greenish. No eye pain and slight posterior headache resolv ed. No vision changes L eye. Continues to have bilateral jaw pain with chewing but improved compared to last month. Did not ever have pain in area of temples. Had tapered from 20 mg prednisone to 15 mg on Sunday She saw optometry yesterday - Dr. Wilson at [facility], by report that exam was normal and retina scan in ED My colleague's exam this AM with Fabián Adele pupil on the right, "Ophthalmoscopic examination--left eye with normal cup-to-disc ratio 0.4/0.4, and an sharp disc margins. Right eye with decreased cup-to-disc ratio of 0.1/ 0.1 and hazy disc margins" Reviewed MRI brain/orbit - with some hyperintense T2/FLAIR foci throughout likely microvascular disease vs less likely demyelinating progess, MRA head/neck unremarkable, MRI cspine with advanced multilevel spondylodegenerative changes including some areas of mild cervical spinal stenosis and areas of [id number] neuroforaminal stenoses. Extensive serologic workup pending as per Dr. Smith's note Neurologist consulted this AM did not find neurological cause for vision loss, concern is for AION perhaps associated with GCA Inflammatory markers were very elevated last month but improved on prednisone ESR 41 -->21 and CRP 60.9--> 2.76 Plan: -continue dexamethasone -I discussed with her Engine Oiler Dr. Del Real -consult ophthalmology - I have left message with Dr. Blake who is absorption plant operator -updated Deepali and her with the plan of care
[2024-02-28] MEDS ORDERED: POLYETHYLENE (MIRALAX) 17 GM PACK PO PRN (14:35)
[2024-02-28] MEDS ORDERED: methylPREDNISolone 125 MG/2 ML VIAL IV STA (14:35)
--- NOTE | 2024-02-28 14:52 | Rheumatology Consultation ---
Rheumatology Consultation DOS February 28, [address] Ambrocio Attending Physician Dr. Ambrocio Reason for Consultation Acute vision loss Assessment & Plan (1) Acute visual loss: This patient previously had a rather robust systemic inflammatory process without evidence of a well-defined vasculitis or source beyond reactive changes from recent COVID infection Inflammatory markers have improved significantly since starting prednisone However, acute vision loss raises concern for possibility of acute ischemic optic neuritis from giant cell arteritis. She reports a history of scalp tenderness when she had her hair washed on 02/18. Some jaw discomfort but more of a discomfort when she fully opens her jaw without significant claudication history although she did indicate previously that there was some discomfort when chewing foods (unable to determine if it is related to a mechanical jaw process versus true jaw claudication). Await input from ophthalmology to determine if there are any obvious reasons or etiologies beyond AION and to see if they identify potential features consistent with ischemic optic neuritis With GCA on the differential, recommend more aggressive steroid dosing. Recommend 500 mg of Solu-Medrol now and then continue 250 mg twice daily starting tomorrow morning. If ophthalmology identifies an alternative expla nation for her vision loss beyond potential vasculitis, then steroids can be reduced to her usual outpatient dose If ischemic optic neuritis is identified, recommend bilateral temporal artery biopsies Agree with evaluation for prothrombotic etiology with the antiphospholipid antibodies. Unfortunately, this will take 1 to 3 weeks for results. Patient reported difficulty with constipation and I notified her hospitalist. I discussed the case with Dr. Ambrocio Laterality: right Qualified Code(s): H53.131 - Sudden visual loss, right eye History of Present Illness Attending Physician: Genie Ambrocio MD History of Present Illness This is a 58-year-old woman presenting with acute vision change. Patient was initially seen in my outpatient rheumatology office on 02/01/2024 with anterior barron skin lesions consistent with erythema nodosum. However, she had additional skin lesions at areas atypical for EN prompting concern for systemic inflammatory process such as polyarteritis nodosum. The development of the skin lesions occurred following COVID infection which she contracted in late November/early December 2023. 1 week later, these palpable bumps developed. On 02/01, CRP was 36.5 (8) with an ESR of 11. Patient underwent urgent biopsy of a palpable lesion in her upper leg which revealed evidence of panniculitis without medium vessel vasculitis. She had low-grade fever shortly after her initial office visit and steroids were held until biopsy and resolution of the fever. Patient reports that on the Sunday prior to , she began 20 mg of prednisone and she was then seen in my office on 02/20 at which time she was noticing improvement with the skin lesions and was feeling better with respect to energy levels. She reported some difficulty with opening her jaw causing pain. No clear jaw claudication. She reports that she was experiencing some discomfort with chewing foods which resolved 4 days after starting steroids. Yesterday morning she awoke at 3 AM. At 5 AM, she began experiencing some sensitivity light and spots in her eye as if there was no. She felt similar to when she would contract an ocular migraine. By around 8 or 830, she noted a salas fog around the outer side of her vision and she had difficulty seeing clearly. She presented to outpatient optometry who did not identify obvious changes and recommended ER for additional evaluation. She had an MRI and was told no acute findings were identified and she was given a diagnosis of ocular migraine and discharged to home. At 7 PM, she had worsening eyesight and abnormal color as if she was wearing a green sunglasses. She also had some "starbursts". She went back to the ER based on the worsening vision and was admitted for further evaluation. She has been seen by neurology. She received a dose of IV Decadron upon admission and then again earlier this morning. All of her ocular symptoms were involving the right eye. She has not seen any improvement as of yet. She previously had a posterior headache and it is now gone. She has not had any worsening skin rashes. In fact, she notes improvement with the anterior barron lesions that she initially presented to my office for in mid January. Allergies Allergy/AdvReac Type Severity Reaction Status Date / Time thimerosal Allergy Intermediate Rash Verified 02/21/24 15:21 doxycycline AdvReac Intermediate Vomiting Verified 02/21/24 15:21 spinach AdvReac Mild Vomiting Verified 02/21/24 15:21 Home Medications Medication Instructions Recorded Confirmed Type calcium 500 mg 1 tab PO BID 02/04/21 02/28/24 History (carb,gluconate)-magnesium 250 mg (gluc,oxide) tablet (Calcium Magnesium) losartan 100 mg tablet 100 mg PO QAM 10/24/23 02/28/24 History hydroxyzine HCl 25 mg tablet 37.5 mg PO HS 02/28/24 02/28/24 History magnesium 250 mg tablet 250 mg PO BID 02/28/24 02/28/24 History metoprolol succinate 50 mg 50 mg PO QAM 02/28/24 02/28/24 History tablet,extended release 24 hr minocycline 50 mg capsule 50 mg PO BID 02/28/24 02/28/24 History omega-3s 360 wo-xhe-vzb-fish oil 1 cap PO AMPM 02/28/24 02/28/24 History 1,200 mg-D3 1,000 unit capsule (Fish Oil-Vit D3) prednisolone acetate 1 % eye 1 drp OPR .PT HOLDING 02/28/24 02/28/24 History drops,suspension prednisone 10 mg tablet 15 mg PO QAM 02/28/24 02/28/24 History Patient History Medical History (Updated 02/28/24 @ 14:47 by Tyson Del Real DO) Erythema nodosum Factor 5 Leiden mutation, heterozygous sister had hx clot to brain and mom had DVT Nodular episcleritis Surgical History (Updated 02/07/24 @ 09:36 by Melodie Pollard RN) H/O section x1 History of arthroscopy right knee Hx of biopsy (02/05/24) FINAL DIAGNOSIS In office procedure Dr. Duncan Skin, right lower extremity nodule, excision: - Panniculitis suggestive of erythema nodosum (given clinical history Hx of colonoscopy Unknown date S/P tooth extraction Family History Mother TIA (transient ischemic attack) Superficial thrombophlebitis Hypertension Macular degeneration Clotting disorder Sister Superficial thrombophlebitis Breast cancer, Onset Age: 70 Clotting disorder Father Heart failure Coronary heart disease Prostate cancer, Onset Age: 70 Myocardial infarction Heart disease Hypertension Grandfather (Maternal) Coronary heart disease Grandfather (Paternal) Coronary heart disease Grandmother (Maternal) Breast cancer Uncle Breast cancer PATERNAL Grandfather Stroke Other H/O varicella Osteoporosis Denies family history of Ovarian cancer Social History Smoking Status: Former smoker Age Quit Using Tobacco: 28; Second Hand Exposure: No; Do You Dip or Chew Tobacco: No; Hx Alcohol Use: Yes Alcohol type: wine Alcohol Intake Frequency: 4 or More x per/Week Hx Substance Use: No Preferred Language: Korean Communication Ability: Effective Visual Impairment: Severely Limited Hearing Ability: Normal Color Print Inspector Required: No Beliefs That Will Affect Care: None marital status: Current Living Situation: Spouse current occupational status: employed 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 Denies chest pain. Denies shortness of breath or cough. Denies new or worsening skin rashes. Denies nausea or vomiting. Positive constipation. Some darker green stools but denies black stools. Physical Exam Physical Exam: General: No acute distress Eyes: Minimal reactivity right pupil. Mouth: No oral ulcerations Cardiovascular: Heart regular Pulmonary: Clear to auscultation Abdomen: Soft, nontender Skin: Some firmness to the skin at the anterior barron in a couple locations without redness or inflammatory change. Musculoskeletal: No synovitis. No effusions Results & Data Vital Signs (Past 12 Hours) Vital Signs Temp Pulse Pulse Resp BP Pulse Ox O2 Del Method 02/28/24 10:44 36.4 C L 64 18 111/73 98 Room Air 02/28/24 07:15 58 L 02/28/24 07:05 36.4 C L 65 16 114/75 98 Room Air 02/28/24 04:44 36.5 C 65 16 124/84 98 Room Air 02/28/24 04:40 65 02/28/24 04:35 Room Air 02/28/24 04:35 36.5 C 60 18 124/84 98 Room Air Laboratory Results Reviewed lab data. Reviewed MRI and MRA results. Reviewed notes from admitting physician and neurology PG Care Time/CCT Total # of Minutes Spent Total Time Spent with Patient: Total time spent is greater than 50% in coordination of care (as documented) at patient's floor/unit and/or counseling patient: Coding Level of Care Code 87909 IN/OBS CONSULT LVL 3,45M Diagnoses Sudden visual loss of right eye H53.131 Laterality: right
[2024-02-28] MEDS: methylPREDNISolone 500 MG in DEXTROSE 5% 100 ML IV STA (15:18)
[2024-02-28] MEDS: SENNA 8.6 MG TAB PO SCH (15:18)
--- NOTE | 2024-02-28 15:32 | Ophthalmology Consultation ---
Date of Consultation February 28, 2024 Assessment & Plan (1) Acute visual loss: Ischemic optic neuropathy: The cause of vision loss in the right is almost certainly due to pathology in the right optic nerve given the swollen optic nerve and afferent pupillary defect. 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 I agree with the recommendations of rheumatology of a much higher dose of steroid which is critical to prevent a catastrophic loss of vision in the left eye. I also agree with a temporal artery biopsy to try and get a definitive diagnosis but I wonder how likely a false negative might be given that she has been taking oral steroids for a couple of weeks (albeit at a lower dose than typically used to treat GCA) and her labs have already normalized. I did discuss with the patient that the prognosis of visual recover in her right eye is guarded. I would recommend a follow up as an outpatient. History of Present Illness Reason for Consultation: Acute vision loss right eye Requesting Physician: Dr. Genie Ambrocio MD Attending Physician: Genie Ambrocio MD History of Present Illness The patient reports a sudden change in vision starting yesterday morning. She describes the vision change initially as wavy lines similar to her migraine aura. She was evaluated by her sweat band sewer but no abnormalities were found. The vision loss worsened rapidly prompting a trip to the ER. The vision now is almost completely gone. The left eye is asymptomatic. She has recently been treated with oral prednisone for another inflammatory condition characterized by skin lesions on her shins. She had elevated CRP and ESR at the time of this diagnosis but these values have normalized with the oral steroids. She was taking 20 mg daily for this condition. She has also been having fevers, night sweats, scalp pain and jaw pain. She states with her recent inflammatory skin condition she had "white bumps" on the white of her eye and has been using topical steroid drops prescribed by her sweat band sewer. Allergies Allergy/AdvReac Type Severity Reaction Status Date / Time thimerosal Allergy Intermediate Rash Verified 02/21/24 15:21 doxycycline AdvReac Intermediate Vomiting Verified 02/21/24 15:21 spinach AdvReac Mild Vomiting Verified 02/21/24 15:21 Home Medications Medication Instructions Recorded Confirmed Type calcium 500 mg 1 tab PO BID 02/04/21 02/28/24 History (carb,gluconate)-magnesium 250 mg (gluc,oxide) tablet (Calcium Magnesium) losartan 100 mg tablet 100 mg PO QAM 10/24/23 02/28/24 History hydroxyzine HCl 25 mg tablet 37.5 mg PO HS 02/28/24 02/28/24 History magnesium 250 mg tablet 250 mg PO BID 02/28/24 02/28/24 History metoprolol succinate 50 mg 50 mg PO QAM 02/28/24 02/28/24 History tablet,extended release 24 hr minocycline 50 mg capsule 50 mg PO BID 02/28/24 02/28/24 History omega-3s 360 st-rwg-ydr-fish oil 1 cap PO AMPM 02/28/24 02/28/24 History 1,200 mg-D3 1,000 unit capsule (Fish Oil-Vit D3) prednisolone acetate 1 % eye 1 drp OPR .PT HOLDING 02/28/24 02/28/24 History drops,suspension prednisone 10 mg tablet 15 mg PO QAM 02/28/24 02/28/24 History Patient History Medical History (Updated 02/28/24 @ 14:47 by Tyson Del Real DO) Erythema nodosum Nodular episcleritis Factor 5 Leiden mutation, heterozygous sister had hx clot to brain and mom had DVT Surgical History (Updated 02/07/24 @ 09:36 by Melodie Pollard RN) Hx of biopsy (02/05/24) FINAL DIAGNOSIS In office procedure Dr. Duncan Skin, right lower extremity nodule, excision: - Panniculitis suggestive of erythema nodosum (given clinical history Hx of colonoscopy Unknown date History of arthroscopy right knee H/O section x1 S/P tooth extraction Family History Mother TIA (transient ischemic attack) Superficial thrombophlebitis Hypertension Macular degeneration Clotting disorder Sister Superficial thrombophlebitis Breast cancer, Onset Age: 70 Clotting disorder Father Heart failure Coronary heart disease Prostate cancer, Onset Age: 70 Myocardial infarction Heart disease Hypertension Grandfather (Maternal) Coronary heart disease Grandfather (Paternal) Coronary heart disease Grandmother (Maternal) Breast cancer Uncle Breast cancer PATERNAL Grandfather Stroke Other H/O varicella Osteoporosis Denies family history of Ovarian cancer Social History Smoking Status: Former smoker Age Quit Using Tobacco: 28; Second Hand Exposure: No; Do You Dip or Chew Tobacco: No; Hx Alcohol Use: Yes Alcohol type: wine Alcohol Intake Frequency: 4 or More x per/Week Hx Substance Use: No Preferred Language: Japanese Communication Ability: Effective Visual Impairment: Severely Limited Hearing Ability: Normal Automatic Maintainer Required: No Beliefs That Will Affect Care: None marital status: Current Living Situation: Spouse current occupational status: employed 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 How many Children do You have: 2 Other Information That Helps Us Care for You: No Feels Safe at Home: Yes Safety Concerns: Feels Safe At This Time Diet: regular caffeine: Yes (2 cups daily) during the past year weight has: increased > 10 lbs Dental Care, Regularly: Yes Physical Activity Frequency: 3-4 Times per Week Seatbelt Use: always Do you think of yourself as: straight/heterosexual Gender Identity: Female Assistive Devices: None Physical Exam Eyes: Vision - Barely hand motions right eye, only vision is temporally, otherwise light perception, left eye is 20/30 without correction on near card. Pupils: right eye is minimally reactive, the left eye reacts normally. There is an afferent pupillary defect in the right eye. Ocular motility is normal. Confrontation visual guadarrama grossly absent on the right, normal on the left. Penlight exam shows a normal anterior segment in both eyes (normal lids, conjunctiva, sclera, cornea, anterior chamber, iris, and lens bilaterally). Fundus exam shows some swelling of the optic nerve in the right eye but no hemorrhaging. The optic nerve in the left eye is unremarkable with good color and sharp margins. The remainder of the fundus exam was normal with normal retinal vessels, macula, and retinal periphery. Results & Data Vital Signs (Past 12 Hours) Vital Signs Temp Pulse Pulse Resp BP Pulse Ox O2 Del Method 02/28/24 14:52 36.4 C L 67 18 108/71 97 Room Air 02/28/24 10:44 36.4 C L 64 18 111/73 98 Room Air 02/28/24 07:15 58 L 02/28/24 07:05 36.4 C L 65 16 114/75 98 Room Air 02/28/24 04:44 36.5 C 65 16 124/84 98 Room Air 02/28/24 04:40 65 02/28/24 04:35 Room Air 02/28/24 04:35 36.5 C 60 18 124/84 98 Room Air (1) Acute visual loss Laterality: right Qualified Code(s): H53.131 - Sudden visual loss, right eye
[2024-02-28] MEDS: methylPREDNISolone 250 MG in DEXTROSE 5% 100 ML IV SCH (21:20)
[2024-02-29] MEDS ORDERED: methylPREDNISolone 125 MG/2 ML VIAL IV SCH (09:00)
[2024-02-29] MEDS: ASPIRIN 81 MG ECTAB PO SCH (09:25)
--- NOTE | 2024-02-29 10:42 | Surgery Consultation ---
<Statement entered by Patrick Fernandez MD - 02/29/24 12:24> patient seen and examined and agree with above Date of Consultation February 29, 2024 Assessment & Plan (1) Acute visual loss: (2) Polymyalgia rheumatica: (3) GCA (giant cell arteritis): Will plan to proceed with bilateral temporal artery biopsy tomorrow morning with Dr. Fernandez. NPO after midnight. Continue IV steroids. Discussed procedure and risks with patient, Informed consent will be obtained with Dr. Fernandez who will evaluate patient later today. Continue medical management diet okay for today History of Present Illness Reason for Consultation: Bilateral Temporal artery biopsy Requesting Physician: Genie Ambrocio MD Attending Physician: Genie Ambrocio MD History of Present Illness Deepali is a 58 year-old female with history of HTN, Chronic kidney disease, insomnia, who recently had COVID infection end of December and developed nodules of her lower extremities in which she was placed on oral Prednisone 20 mg for 2 weeks and a taper. Biopsy of skin lesions showed panniculitis and rheumatology felt she had a systemic inflammatory response to COVID infection. She was also have fatigue, night sweats, and fevers with some jaw pain and inability to open her jaw or chew which improved after steroids were started. She presented to emergency department Sunday due acute right vision changes and now has lost most of her vision of her right eye. No vision changes in her left eye. Rheumatology and ophthalmology have evaluated patient and believe her acute vision changes are acute ischemic neuritis likely due to GCA and are recommending bilateral temporal artery biopsy. She is on 81 mg of Aspirin, no other blood thinners. Allergies Allergy/AdvReac Type Severity Reaction Status Date / Time thimerosal Allergy Intermediate Rash Verified 02/21/24 15:21 doxycycline AdvReac Intermediate Vomiting Verified 02/21/24 15:21 spinach AdvReac Mild Vomiting Verified 02/21/24 15:21 Home Medications Medication Instructions Recorded Confirmed Type calcium 500 mg 1 tab PO BID 02/04/21 02/28/24 History (carb,gluconate)-magnesium 250 mg (gluc,oxide) tablet (Calcium Magnesium) losartan 100 mg tablet 100 mg PO QAM 10/24/23 02/28/24 History hydroxyzine HCl 25 mg tablet 37.5 mg PO HS 02/28/24 02/28/24 History magnesium 250 mg tablet 250 mg PO BID 02/28/24 02/28/24 History metoprolol succinate 50 mg 50 mg PO QAM 02/28/24 02/28/24 History tablet,extended release 24 hr minocycline 50 mg capsule 50 mg PO BID 02/28/24 02/28/24 History omega-3s 360 vg-fhm-ypw-fish oil 1 cap PO AMPM 02/28/24 02/28/24 History 1,200 mg-D3 1,000 unit capsule (Fish Oil-Vit D3) prednisolone acetate 1 % eye 1 drp OPR .PT HOLDING 02/28/24 02/28/24 History drops,suspension prednisone 10 mg tablet 15 mg PO QAM 02/28/24 02/28/24 History Patient History Medical History (Updated 02/28/24 @ 14:47 by Tyson Del Real DO) Erythema nodosum Nodular episcleritis Factor 5 Leiden mutation, heterozygous sister had hx clot to brain and mom had DVT Surgical History (Updated 02/07/24 @ 09:36 by Melodie Pollard RN) Hx of biopsy (02/05/24) FINAL DIAGNOSIS In office procedure Dr. Duncan Skin, right lower extremity nodule, excision: - Panniculitis suggestive of erythema nodosum (given clinical history Hx of colonoscopy Unknown date History of arthroscopy right knee H/O section x1 S/P tooth extraction Family History Mother TIA (transient ischemic attack) Superficial thrombophlebitis Hypertension Macular degeneration Clotting disorder Sister Superficial thrombophlebitis Breast cancer, Onset Age: 70 Clotting disorder Father Heart failure Coronary heart disease Prostate cancer, Onset Age: 70 Myocardial infarction Heart disease Hypertension Grandfather (Maternal) Coronary heart disease Grandfather (Paternal) Coronary heart disease Grandmother (Maternal) Breast cancer Uncle Breast cancer PATERNAL Grandfather Stroke Other H/O varicella Osteoporosis Denies family history of Ovarian cancer Social History Smoking Status: Former smoker Age Quit Using Tobacco: 28; Second Hand Exposure: No; Do You Dip or Chew Tobacco: No; Hx Alcohol Use: Yes Alcohol type: wine Alcohol Intake Frequency: 4 or More x per/Week Hx Substance Use: No Preferred Language: Citizen Of [place] Communication Ability: Effective Visual Impairment: Severely Limited Hearing Ability: Normal Product Development Carpenter Required: No Beliefs That Will Affect Care: None marital status: Current Living Situation: Spouse current occupational status: employed 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 How many Children do You have: 2 Other Information That Helps Us Care for You: No Feels Safe at Home: Yes Safety Concerns: Feels Safe At This Time Diet: regular caffeine: Yes (2 cups daily) during the past year weight has: increased > 10 lbs Dental Care, Regularly: Yes Physical Activity Frequency: 3-4 Times per Week Seatbelt Use: always Do you think of yourself as: straight/heterosexual Gender Identity: Female Assistive Devices: None Review of Systems Review of Systems: All systems reviewed & are unremarkable except as noted in HPI & below Physical Exam Constitutional: WD/WN, vitals as above cooperative and comfortable; no acute distress and not ill appearing Respiratory: normal respiratory effort, lungs clear to auscultation Cardiovascular: RRR, no murmur, no edema Psychiatric: A+Ox3, euthymic affect Results & Data Vital Signs (Past 12 Hours) Vital Signs Temp Pulse Pulse Resp BP Pulse Ox O2 Del Method 02/29/24 10:24 36.4 C L 67 17 115/75 98 Room Air 02/29/24 07:04 36.6 C 66 18 111/72 99 Room Air 02/29/24 02:42 36.5 C 64 18 109/72 99 Room Air 02/28/24 23:25 60 02/28/24 23:05 36.6 C 64 16 106/68 99 Room Air Diagnostic Findings EXAM: MR angio neck wo/w con CLINICAL HISTORY: right eye loss of vision that started around 5 am on 02/26. patient was in the ED on 02/26 and had MRI brain/orbits done. patient returned to ED stating symptoms are worsening. pain posterior head. no known recent injury. injected 8cc gadavist through existing iv right arm uneventful at 0400. CT head 02/27. MRI brain and orbits 02/26. images 943 had a coil issue when doing carotids. unable to correct for signal loss during carotid exam. best scan possible at this time. TECHNIQUE: Multiplanar Angiography imaging was performed using [id number] (TOF) sequences and post-contrast sequences. Intravenous 8cc Gadavist contrast was administered. COMPARISON: None. FINDINGS: Carotid Arteries: Normal visualization of the common carotid arteries, internal carotid arteries, and external carotid arteries bilaterally. No evidence of stenosis, occlusion, or aneurysm. Normal flow signal. Normal enhancement post-contrast. Vertebral Arteries: Normal visualization of the vertebral arteries bilaterally. No evidence of stenosis, occlusion, or aneurysm. Normal flow signal. Normal enhancement post-contrast. Dominant left one. Subclavian Arteries: Normal visualization of the subclavian arteries bilaterally. No evidence of stenosis, occlusion, or aneurysm. Normal enhancement post-contrast. IMPRESSION: 1. Unremarkable MRA of the neck with and without contrast. 2. No evidence of significant vascular abnormalities. EXAM: MR angio head wo con CLINICAL HISTORY: right eye loss of vision that started around 5 am on 02/26. patient was in the ED on 02/26 and had MRI brain/orbits done. patient returned to ED stating symptoms are worsening. pain posterior head. no known recent injury. CT head 02/27. MRI brain and orbits 02/26. images 527 room A9B TECHNIQUE: MR angiography of the head ([place]) was performed by 3D TOF technique. MPR images were obtained. COMPARISON: the CT02/27/2024, and MRI 02/18/2024 have been reviewed. FINDINGS: Intracranial Arteries: Normal visualization of the intracranial arteries. No evidence of stenosis, occlusion, or aneurysms. Normal flow signal in the anterior, middle, and posterior cerebral arteries. Normal flow signal in the basilar and vertebral arteries. [place]: Hypoplastic P1 segment, with a origin of left RN SUPPLEMENTAL. Hypoplastic A1 of the left GILL. Complete and normally configured [place]. No evidence of vascular malformations or aneurysms. Venous Sinuses: Normal visualization of the major dural venous sinuses. No evidence of venous sinus thrombosis. IMPRESSION: 1. Normal MRA of the head without contrast. 2. No evidence of significant vascular abnormalities. (1) Acute visual loss Laterality: right Qualified Code(s): H53.131 - Sudden visual loss, right eye
--- NOTE | 2024-02-29 11:24 | Hospitalist Progress Note ---
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 Was under treatment with prednisone 20 mg for 2 weeks with resolution of lesions and improvement of fatigue, night sweats and jaw pain. Had tapered from prednisone 20 mg daily to 15 mg daily this saturday 02/24. Developed sudden R sided vision loss 02/26. Admitted and treated with dexamethasone 6 mg IV on 02/26, 02/27 IOP were normal Afferent pupillary defect on right, funduscopic exam with some optic nerve swelling. Left is normal. MRI brain/orbit, MRA head/neck unremarkable MRI cspine with advanced multilevel spondylodegenerative changes including some areas of mild cervical spinal stenosis and areas of [id number]-bg-mevsrubu neuroforaminal stenoses Inflammatory markers were very elevated last month but improved on prednisone ESR 41 -->21 and CRP 60.9--> 2.76. Extensive serologic workup underway - see details below Opthalmologist, Lead Caregiver, Neurologist consulted 02/27 -picture consistent with AION -there is some concern for GCA triggering the AION, though presentation is atypical. She does have brother with GCA. Continuing high dose solumedrol started 02/27. -Continue ASA 81 mg daily -Consulted Dr. Fernandez regarding bilateral temporal artery biopsy - could have false negative because she has had several weeks of steroids, so we appreciate this being expedited. Labs pending: Hqzy-mvydsr-bngzhbvy DNA, complement levels, arterial hypercoagulable workup including lupus anticoagulant, cardiolipin antibody, homocystine, and beta-2 microglobulin HLA-B27 - history of nodular episcleritis, and spondylitic changes in spine CMV, EBV Previous testing: negative ASMA, AMA, ANCA, MP3 and proteinase 3 lyme, anaplasmosis and babesiosis smear Other problems: Transaminitis- has had elevations of AST, ALT that have downtrended since starting prednisone. 189/384 ---->32/83 with normal bilirubin alk phos and INR. Hepatic steatosis and gallstones on US 11/20. Tick panel with and antibody testing negative on 02/05 Respiratory BioFire test 02/05 was negative HCV Ab neg Hepatitis A, B, parvovirus, CMV and EBV testing were sent - pending -AM CMP Mild elevation of Cr. CKD-3 with baseline Cr 1. QIAN 11/21/23 - normal kidneys Creatinine 1.26-->1.12 -BMP in AM Prediabetes - A1c 6.0% -check BG while on high dose steroids Hypertension - continue metoprolol Mild MAYELIN L calf pain - serial exam, see if this resolves. No swelling and pain very focal DVT seems unlikely. Possibly muscle spasm dvt ppx - SQ heparin, hold tomorrow resume following biopsies when ok with surgery Admission and Anticipated Discharge Date Admission Date: February 28, 2024 Subjective has some right eye pain today but wonders if its because she's straining trying to see, vision not improved and if anything worse - now black where previously some peng no vision changes L eye has had some focal pain L medial calf when standing up since yesterday Physical Exam Physical Exam: PHYSICAL EXAMINATION Last 24h vital signs reviewed, see documentation in flowsheet General: comfortable appearing, no distress HEENT: sclerae anicteric, no conjunctival injection, moist mucus membranes Lungs: Normal respiratory effort. Heart: deferred Abdomen: Soft, nondistended. Extremities: Warm, dry, well-perfused. No extremity edema. left calf is normal without deformity tenderness or swelling Neuro: Alert and oriented x 4, face symmetric, moves 4 extremities well Psych: Normal affect and behavior Results & Data Results & Data Vital Signs (Past 12 Hours) Vital Signs Temp Pulse Pulse Resp BP Pulse Ox O2 Del Method 02/29/24 10:24 97.5 F L 67 17 115/75 98 Room Air 02/29/24 07:04 97.9 F 66 18 111/72 99 Room Air 02/29/24 02:42 97.7 F 64 18 109/72 99 Room Air 02/28/24 23:25 60 PG Care Time/CCT Total # of Minutes Spent Total Time Spent with Patient: Total time spent is greater than 50% in coordination of care (as documented) at patient's floor/unit and/or counseling patient: Coding Level of Care Code 44772 SUB INP/OBS CARE 3/50MIN Diagnoses 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
[2024-02-29] MEDS: HEPARIN SOD 5,000 UNIT/0.5 ML VIAL SQ SCH (12:12)
[2024-03-01 06:23] LABS: Hematocrit (blood only) 43.6 % (37.0-47.0); Hemoglobin 14.5 g/dl (12.0-16.0); Mean Corpuscular Hemoglobin 29.8 pg (25.0-34.0); Mean Corpuscular Hgb Conc 33.3 g/dL (32.0-36.0); Mean Corpuscular Volume 89.7 fL (80.0-100.0); Mean Platelet Volume 9.5 fL (9.4-12.4); Platelet Count 255 K/uL (130-400); RDW Standard Deviation 45.9 fL (36.4-46.3); Red Blood Count 4.86 M/uL (4.20-5.40); White Blood Count 18.33 K/ul (4.8-10.8)
[2024-03-01 06:34] LABS: Albumin Globulin Ratio 1.4 (0.9-2); Albumin Level 3.8 gm/dl (3.4-5.0); BUN Creatinine Ratio 21.9 (10-20); Bilirubin,Total 0.4 mg/dl (0.2-1.0); Calcium 9.4 mg/dl (8.6-10.3); Creatinine Clr Calc Pharmacy 59.6 ml/min; Globulin 2.7 gm/dl (2.5-4.0); Potassium 4.3 mmol/L (3.5-5.1); Total Protein 6.5 gm/dl (6.0-8.3)
--- NOTE | 2024-03-01 07:17 | Anesthesiology Consultation ---
Date of Service March 01, 2024 Assessment & Plan (1) Encounter for pre-operative examination: Chart Review Chart Review: Acceptable Risk for Surgery History Surgery Operation Date: 03/01/24 07:30 Proposed Procedures p Bilateral Temporal Artery Biopsy - Patrick Fernandez MD Height/Weight Height: 5 ft 7 in Weight: 80.9 kg Allergies Allergy/AdvReac Type Severity Reaction Status Date / Time thimerosal Allergy Intermediate Rash Verified 02/21/24 15:21 doxycycline AdvReac Intermediate Vomiting Verified 02/21/24 15:21 spinach AdvReac Mild Vomiting Verified 02/21/24 15:21 Medications Home Medications Medication Instructions Recorded Confirmed Last Taken calcium 500 mg 1 tab PO BID 02/04/21 02/28/24 07/02/21 (carb,gluconate)-magnesium 250 mg (gluc,oxide) tablet (Calcium Magnesium) losartan 100 mg tablet 100 mg PO QAM 10/24/23 02/28/24 02/27/24 hydroxyzine HCl 25 mg tablet 37.5 mg PO HS 02/28/24 02/28/24 Unknown magnesium 250 mg tablet 250 mg PO BID 02/28/24 02/28/24 02/27/24 metoprolol succinate 50 mg 50 mg PO QAM 02/28/24 02/28/24 02/27/24 tablet,extended release 24 hr minocycline 50 mg capsule 50 mg PO BID 02/28/24 02/28/24 Unknown omega-3s 360 bg-slr-fcg-fish oil 1 cap PO AMPM 02/28/24 02/28/24 Unknown 1,200 mg-D3 1,000 unit capsule (Fish Oil-Vit D3) prednisolone acetate 1 % eye 1 drp OPR .PT HOLDING 02/28/24 02/28/24 Unknown drops,suspension prednisone 10 mg tablet 15 mg PO QAM 02/28/24 02/28/24 02/27/24 Active Medications Generic Name Dose Route Start Last Admin Trade Name Freq PRN Reason Stop Dose Admin Aspirin 81 mg 02/29/24 09:00 02/29/24 09:25 Aspirin 81 Mg Ectab PO 03/30/24 08:59 81 mg QAM JOSE Administration Methylprednisolone 250 mg/ 104 mls @ 312 mls/hr 02/28/24 21:00 02/29/24 20:55 Dextrose IV 03/29/24 20:59 Infused Q12 JOSE Infusion Magnesium Oxide 400 mg 02/28/24 09:00 02/29/24 20:28 Magnesium Oxide 400 Mg Tab PO 03/29/24 08:59 400 mg BID JOSE Administration Metoprolol Succinate 50 mg 02/28/24 09:00 02/29/24 09:24 Metoprolol Succ 50mg Ext Rel Tab PO 03/29/24 08:59 50 mg QAM JOSE Administration Sennosides 17.2 mg 02/28/24 14:45 02/29/24 09:49 Senna 8.6 Mg Tab PO 03/29/24 14:44 17.2 mg QAM JOSE Administration NPO Date Last Intake of Fluids: 02/29/24 Time Last Intake of Fluids: 23:59 Past Medical History Medical History (Updated 03/01/24 @ 07:17 by Andry Santoyo MD) Polymyalgia rheumatica GCA (giant cell arteritis) 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 Headache Visual disturbance HTN (hypertension) Chronic kidney disease, stage 3a Erythema nodosum Nodular episcleritis Factor 5 Leiden mutation, heterozygous sister had hx clot to brain and mom had DVT Past Family History Family History Mother TIA (transient ischemic attack) Superficial thrombophlebitis Hypertension Macular degeneration Clotting disorder Sister Superficial thrombophlebitis Breast cancer, Onset Age: 70 Clotting disorder Father Heart failure Coronary heart disease Prostate cancer, Onset Age: 70 Myocardial infarction Heart disease Hypertension Grandfather (Maternal) Coronary heart disease Grandfather (Paternal) Coronary heart disease Grandmother (Maternal) Breast cancer Uncle Breast cancer PATERNAL Grandfather Stroke Other H/O varicella Osteoporosis Denies family history of Ovarian cancer Past Surgical History Surgical History (Updated 02/07/24 @ 09:36 by Melodie Pollard RN) Hx of biopsy (02/05/24) FINAL DIAGNOSIS In office procedure Dr. Duncan Skin, right lower extremity nodule, excision: - Panniculitis suggestive of erythema nodosum (given clinical history Hx of colonoscopy Unknown date History of arthroscopy right knee H/O section x1 S/P tooth extraction Social History Smoking Status: Former smoker Do You Dip or Chew Tobacco: No Hx Alcohol Use: Yes Alcohol type: wine alcohol intake frequency: holidays/special occasions only Hx Substance Use: No substance use type: does not use Physical Exam Vital Signs Last Vital Signs Temp 36.7 C 03/01/24 05:25 Pulse 65 03/01/24 05:25 Resp 16 03/01/24 05:25 BP 124/71 03/01/24 05:25 Pulse Ox 97 03/01/24 05:25 O2 Del Method Room Air 03/01/24 05:25 Testing Laboratory Results 03/01/24 05:27 03/01/24 05:27 Hemoglobin A1c 6.0 % (4.5-5.6) H 02/28/24 02:17 Electrocardiogram Date: 02/27/24 Findings: + SB @ (58) Other Testing MRI of head and neck showed no mass / bleed etc
--- NOTE | 2024-03-01 07:53 | History & Physical Bridge Note ---
Date of Service March 01, 2024 History & Physical Bridge Note I have examined the patient, reviewed the History & Physical and in the interval since the performance of the History & Physical I have noted the following changes of clinical significance: no changes noted
[2024-03-01] MEDS: ceFAZolin 2000MG 2,000 MG/15 ML SYR IV ONE (08:04)
[2024-03-01] MEDS: POVIDONE-IODINE OP SOLN 30 ML BTL OP ONE (08:34)
[2024-03-01] MEDS: LIDOCAINE 1%/EPINEPHRINE 1:100,000 50 ML VIAL ONE (09:11)
--- NOTE | 2024-03-01 09:23 | Operative Report ---
Post Operative Report Pre & Post Diagnosis Operation Date: 03/01/24 07:30 Pre-Op Diagnosis: Acute visual loss Polymyalgia rheumatica Giant cell arteritis Post-Op Diagnosis: Acute visual loss Polymyalgia rheumatica Giant cell arteritis I identified the patient and participated in the time-out.: Yes Procedure Operation Date: 03/01/24 07:30 Actual Procedures p Bilateral Temporal Artery Biopsy(Bilateral) - Patrick Fernandez MD Surgeon Patrick Fernandez MD Analytical Consultant None Estimated Blood Loss 20 Findings Consistent with Post-Op Diagnosis Specimens Bilateral superficial temporal arteries Drains None Anesthesia Type General Complications none Disposition Accompanied Patient To Recovery: No Disposition: Recovery Room Indications This is a 58-year-old female who is admitted with some visual changes headaches and possibility for giant cell arteritis. Will plan on doing a bilateral sup erficial temporal artery biopsy by recommendation of her medical doctors. She understands all the risks and wishes to proceed. Description of Procedure Patient was taken to the OR and underwent excellent general LMA anesthesia. The right temporal area was prepped and draped in sterile fashion. The artery had been identified in preoperative holding area. Incision was made over this area and dissection is taken down to identify her temporal artery. A clip was placed proximally on the artery and a clip was placed distally. A section of the art ailyn was excised and sent for pathologic evaluation. Hemostasis was noted after irrigation. Interrupted nylon sutures were used to close the skin. Attention then turned to the left presybeterian area which was prepped and draped in normal sterile fashion. Incision was made at a previously marked spot on the temporal area. Dissection was taken down to identify the artery. The artery was clipped proximally and then distally. A section of the artery was then sent for pathologic evaluation. The cavity was irrigated and noted to be hemostatic. Interrupted nylon sutures were used to close the skin. Sterile dressings were applied to both incisions they tolerated procedure procedure without complications. I attest to the content of the Intraoperative Record and any orders documented therein. Any exceptions are noted below.
[2024-03-01] MEDS: fentaNYL citrate PF 100 MCG/2 ML VIAL IV PRN (09:30)
[2024-03-01] MEDS ORDERED: ATROPINE SULFATE 0.1 MG/ML 10ML SYR IV PRN (09:30)
[2024-03-01] MEDS ORDERED: HYDROmorphone INJ 1 MG/ML SYRINGE IV PRN (09:30)
[2024-03-01] MEDS ORDERED: ONDANSETRON INJ 2 MG/ML 2 ML VIAL IV PRN ×2 (09:30→10:21)
[2024-03-01] MEDS ORDERED: PROMETHAZINE HCL 6.25 MG in SODIUM CHLORIDE 0.9% 50 ML IV PRN (09:30)
[2024-03-01] MEDS: fentaNYL citrate PF 100 MCG/2 ML VIAL ONE (09:34)
[2024-03-01] MEDS ORDERED: MoRPHine SULFATE 4 MG/ML 1 ML CARP\\VIAL IV PRN (10:21)
[2024-03-01] MEDS ORDERED: oxyCODONE/ACETAMINOPHEN 5mg/325mg TAB PO PRN (10:21)
[2024-03-01] MEDS ORDERED: MoRPHine SULFATE 2 MG/ML CARP IV PRN (10:21)
--- NOTE | 2024-03-01 10:27 | Anesthesiology Progress Note ---
Date of Service March 01, 2024 Anesthesia Post Procedure Vital Signs Vital Signs: Temp Pulse Pulse Pulse Resp BP Pulse Ox 03/01/24 10:21 36.5 C 63 14 112/75 100 03/01/24 10:10 65 20 118/68 95 03/01/24 10:00 36.8 C 73 13 120/72 97 03/01/24 09:50 63 15 123/73 100 03/01/24 09:40 69 16 129/77 100 03/01/24 09:30 71 18 114/71 98 03/01/24 09:22 36.3 C L 72 16 110/74 99 03/01/24 05:25 36.7 C 65 16 124/71 97 02/29/24 21:02 36.5 C 54 L 15 112/76 99 02/29/24 19:23 36.6 C 66 18 107/70 97 02/29/24 15:30 36.4 C L 63 16 122/80 97 O2 Del Method 03/01/24 10:21 Room Air 03/01/24 10:10 Room Air 03/01/24 10:00 Room Air 03/01/24 09:50 Room Air 03/01/24 09:40 Room Air 03/01/24 09:30 Room Air 03/01/24 09:22 Room Air 03/01/24 05:25 Room Air 02/29/24 21:02 Room Air 02/29/24 19:23 Room Air 02/29/24 15:30 Room Air Pain Intensity Right Temporal: Pain Intensity: 5 Transfer of Care Handoff Completed per policy Notes Mental Status: alert / awake / arousable Patient Amnestic to Procedure: Yes Nausea / Vomiting: adequately controlled Pain: adequately controlled Airway Patency, RR, SpO2: stable & adequate BP & HR: stable & adequate Hydration State: stable & adequate Anesthetic Complications: no major complications apparent
[2024-03-01] MEDS: oxyCODONE/ACETAMINOPHEN 5mg/325mg TAB PO PRN (15:09)
--- NOTE | 2024-03-01 15:44 | Hospitalist Progress Note ---
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 Was under treatment with prednisone 20 mg for 2 weeks with resolution of lesions and improvement of fatigue, night sweats and jaw pain. Had tapered from prednisone 20 mg daily to 15 mg daily this saturday 02/24. Developed sudden R sided vision loss 02/26. Admitted and treated with dexamethasone 6 mg IV on 02/26, 02/27 IOP were normal Afferent pupillary defect on right, funduscopic exam with some optic nerve swelling. Left is normal. MRI brain/orbit, MRA head/neck unremarkable MRI cspine with advanced multilevel spondylodegenerative changes including some areas of mild cervical spinal stenosis and areas of [id number] neuroforaminal stenoses Inflammatory markers were very elevated last month but improved on prednisone ESR 41 -->21 and CRP 60.9--> 2.76. Extensive serologic workup underway - see details below Opthalmologist, Surgical Asst, Neurologist consulted 02/27 -picture consistent with AION -there is some concern for GCA triggering the AION, though presentation is atypical. She does have brother with GCA. Continuing high dose solumedrol started 02/27. Today is day 3. Potentially 60 mg prednisone tomorrow -bilateral temporal artery biopsy 03/[address] Fernandez - await pathology. could have false negative because she has had several weeks of steroids -Continue ASA 81 mg daily Labs pending: [id number]-gdamuadz DNA, complement levels, arterial hypercoagulable workup including lupus anticoagulant, cardiolipin antibody, homocystine, and beta-2 microglobulin HLA-B27 - history of nodular episcleritis, and spondylitic changes in spine CMV, EBV Previous testing: negative ASMA, AMA, ANCA, MP3 and proteinase 3 lyme, anaplasmosis and babesiosis smear Other problems: Transaminitis- has had elevations of AST, ALT that have downtrended since starting prednisone. 189/384 ---->32/83 with normal bilirubin alk phos and INR. Hepatic steatosis and gallstones on US 11/20. Tick panel with and antibody testing negative on 02/05 Respiratory BioFire test 02/05 was negative HCV Ab neg, Hep B surface Ag - neg. Hep A/B Igm pending parvovirus, CMV and EBV testing were sent - pending -CMP reviewed 03/01 and virtually normalized Mild elevation of Cr. CKD-3 with baseline Cr 1. QIAN 11/21/23 - normal kidneys Creatinine 1.26-->1.12 -stable 1.14 today Prediabetes - A1c 6.0% -check BG while on high dose steroids - minimally elevated at 105 today Hypertension - continue metoprolol Mild MAYELIN L calf pain - serial exam, see if this resolves. No swelling and pain very focal DVT seems unlikely. Possibly muscle spasm dvt ppx - SQ heparin, hold, resume following biopsies when ok with surgery Admission and Anticipated Discharge Date Admission Date: February 28, 2024 Subjective R eye pain with EOM today. No L eye pain or loss of visual acuity Seen after TA biopsies, has pain especially R face biopsy site Physical Exam 2 Physical Exam: PHYSICAL EXAMINATION Last 24h vital signs reviewed, see documentation in flowsheet General: comfortable appearing, no distress, sitting up in bed HEENT: sclerae anicteric, no conjunctival injection, moist mucus membranes surgical dressing L baptism and R side closer to ear/mandible cdi Visual acuity L eye 20/25 Lungs: Normal respiratory effort. CTAB no rrw Heart: Regular no mrg Abdomen: Soft, nondistended. Extremities: Warm, dry, well-perfused. No extremity edema. Neuro: Alert and oriented x 4, face symmetric, moves 4 extremities well Psych: Normal affect and behavior Results & Data Results & Data Vital Signs (Past 12 Hours) Vital Signs Temp Pulse Pulse Pulse Resp BP Pulse Ox 03/01/24 13:27 97.5 F L 70 18 121/74 99 03/01/24 12:23 73 16 113/72 99 03/01/24 11:20 97.0 F L 74 18 118/75 97 03/01/24 10:49 65 16 105/69 98 03/01/24 10:21 97.7 F 63 14 112/75 100 03/01/24 10:10 65 20 118/68 95 03/01/24 10:00 98.2 F 73 13 120/72 97 03/01/24 09:50 63 15 123/73 100 03/01/24 09:40 69 16 129/77 100 03/01/24 09:30 71 18 114/71 98 03/01/24 09:22 97.3 F L 72 16 110/74 99 03/01/24 05:25 98.1 F 65 16 124/71 97 O2 Del Method 03/01/24 13:27 Room Air 03/01/24 12:23 Room Air 03/01/24 11:20 Room Air 03/01/24 10:49 Room Air 03/01/24 10:21 Room Air 03/01/24 10:10 Room Air 03/01/24 10:00 Room Air 03/01/24 09:50 Room Air 03/01/24 09:40 Room Air 03/01/24 09:30 Room Air 03/01/24 09:22 Room Air 03/01/24 05:25 Room Air Laboratory Results 03/01/24 05:27 03/01/24 05:27 PG Care Time/CCT Total # of Minutes Spent Total Time Spent with Patient: Total time spent is greater than 50% in coordination of care (as documented) at patient's floor/unit and/or counseling patient: Coding Level of Care Code 48773 SUB INP/OBS CARE 2/35MIN Diagnoses 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
[2024-03-01 18:51] VITALS: RESP 16
[2024-03-01 21:06] LABS: Anti-dsDNA Recombinant <1 IU/mL; Hepatitis A Antibody IgM NON-REACTIVE (NON-REACTIVE); Hepatitis B Core Antibody IgM NON-REACTIVE (NON-REACTIVE)
[2024-03-02 04:09] VITALS: TEMP 98.2
[2024-03-02 07:28] VITALS: BP 107/69; PULSE 66; O2SAT 99
--- NOTE | 2024-03-02 09:50 | Surgery Progress Note ---
Date of Service March 02, 2024 Assessment & Plan (1) Acute visual loss: Plan: s/p bilateral TABx remove dressings tonight shower tonight appt my clinic 10 days- 2 weeks discharge per medical team will sign off Admission and Anticipated Discharge Date Admission Date: February 28, 2024 Subjective pain controlled no complaints Review of Systems Constitutional: no fever and no chills Respiratory: no cough and no dyspnea Cardiovascular: no chest pain Physical Exam Constitutional: WD/WN, vitals as above dressings in place Results & Data Vital Signs (Past 12 Hours) Vital Signs Temp Pulse Resp BP Pulse Ox O2 Del Method 03/02/24 07:28 36.8 C 66 16 107/69 99 Room Air 03/02/24 04:08 36.8 C 65 16 110/68 100 Room Air 03/01/24 23:51 36.5 C 55 L 16 114/73 100 Room Air (1) Acute visual loss Laterality: right Qualified Code(s): H53.131 - Sudden visual loss, right eye
--- NOTE | 2024-03-02 16:14 | Discharge Summary ---
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 Was under treatment with prednisone 20 mg for 2 weeks with resolution of lesions and improvement of fatigue, night sweats and jaw pain. Had tapered from prednisone 20 mg daily to 15 mg daily this saturday 02/24. Developed sudden R sided vision loss 02/26. Admitted and treated with dexamethasone 6 mg IV on 02/26, 02/27 then high dose solumedrol starting 02/27. IOP were normal Afferent pupillary defect on right, funduscopic exam with some optic nerve swelling. Left is normal. MRI brain/orbit, MRA head/neck unremarkable MRI cspine with advanced multilevel spondylodegenerative changes including some areas of mild cervical spinal stenosis and areas of [id number]-sjyqptnh neuroforaminal stenoses Inflammatory markers were very elevated last month but improved on prednisone ESR 41 -->21 and CRP 60.9--> 2.76. Extensive serologic workup underway - see details below Opthalmologist, Director Validation, Neurologist consulted 02/27 -picture consistent with AION. Unfortunately has not had improvement in complete loss of vision R eye. L eye visual acuity intact and slightly better than 20/20 wearing glasses on exam 03/02. -there is some concern for GCA triggering the AION, though presentation is atypical. She does have brother with GCA. Treated with high dose solumedrol 500 mg per day 02/27-03/01 and 250 mg on 03/02. Discharging home on prednisone 60 mg daily and will follow up with Dr. Del Real. Added bactrim 1 DS tab tiw for PJP prophylaxis. -bilateral temporal artery biopsy 03/[address] Fernandez - await pathology. could have false negative because she has had several weeks of steroids -in case this was ischemic event started secondary prevention with ASA 81 mg daily, resumed atorvastatin (LDL 108), continue BP and BG control. Omeprazole for GI prophylaxis while on steroids and aspirin. Labs pending: Lbna-fjxgyy-dmudzskx DNA, complement levels, arterial hypercoagulable workup including lupus anticoagulant, cardiolipin antibody, homocystine, and beta-2 microglobulin HLA-B27 - history of nodular episcleritis, and spondylitic changes in spine CMV Previous testing: negative ASMA, AMA, ANCA, MP3 and proteinase 3 lyme, anaplasmosis and babesiosis smear EBV - past infection Other problems: Transaminitis- has had elevations of AST, ALT that have downtrended since starting prednisone. 189/384 ---->32/83 with normal bilirubin alk phos and INR. Hepatic steatosis and gallstones on US 11/20. Tick panel with and antibody testing negative on 02/05 Respiratory BioFire test 02/05 was negative Hepatitis A/B/C negative and EBV - past infection. Parvovirus, CMV pending -CMP 03/01 and virtually normalized -normalizing with steroids - related to inflammatory state, GCA or other -resumed atorvastatin 10 mg Mild elevation of Cr. CKD-3 with baseline Cr 1. QIAN 11/21/23 - normal kidneys Creatinine 1.26-->1.12 -remained stable Prediabetes - A1c 6.0% -check BG while on high dose steroids - minimally elevated at 105 Hypertension - continue metoprolol, had normal BP on metoprolol alone in hospital - she will monitor BP at home and resume ARB if BP elevated. Mild MAYELIN Notes For Next Care Provider bilateral temporal biopsy result pending following up with Rheum - Dr. Del Real and optho - Dr. Bridges Medication Changes From Visit prednisone increased to 60 mg daily (2 week supply given) further taper per Director Validation resumed atorvastatin started ASA 81 mg omeprazole and tiw bactrim for prophylaxis Admission HPI Per Admitting Provider The patient is a 58-year-old female with a past medical history including CKD stage III AA, mild MAYELIN, insomnia, hypertension, arthritis, transaminitis. She presents to the emergency department with history as noted above. Discharge Exam PHYSICAL EXAMINATION Last 24h vital signs reviewed, see documentation in flowsheet General: comfortable appearing, no distress, sitting up in bed HEENT: sclerae anicteric, no conjunctival injection, moist mucus membranes surgical dressing L rastafari and R side closer to ear/mandible cdi Visual acuity L eye a little better than 20/20 with card at 7-8 feet L pupil round and reactive to light Lungs: Normal respiratory effort. Heart: Abdomen: ND Extremities: Warm, dry, well-perfused. No extremity edema. Skin: no rashes Neuro: Alert and oriented x 4, face symmetric, moves 4 extremities well Psych: Normal affect and behavior Discharge Plan Discharge Items Patient Disposition: Home - Self-Care Reason For Visit: OPTIC NEURITIS RIGHT EYE Discharge Diagnosis: Right eye vision loss due to AION Condition on Discharge: Fair Activity: Resume your previous activity Non-emergency contact: Primary Care Provider, Specialist and Sales Representative [employer] Call non-emergency contact if: you have any medication questions and your symptoms worsen Follow-up/Referrals: Patrick Fernandez MD [Physician] - Abby Fritz [Primary Care Provider] - Tyson Del Real DO [Physician] - Diet: Carb Consistent or DM2 and Heart Healthy Addtl Attending Provider Instructions: Unfortunately, you've had right eye vision loss. Exam and imaging is consistent with AION. This can be caused by an ischemic problem (the small artery that feeds the surface of the optic nerve clogs up - like a stroke), and it can also be caused by giant cell arteritis In case of an ischemic event we want you to take a baby aspirin daily. Keep good control of your blood pressure and blood sugar. Resume your atorvastatin 10 mg daily For giant cell arteritis we treat with high dose steroids -continue prednisone 60 mg daily - Dr. Del Real will taper this based on the clinical situation and your biopsy results -bactrim 1 tab 3x a week as prophylaxis for infections while taking high dose steroids -omeprazole (prilosec) 20 mg daily for ulcer prophylaxis while taking steroids and aspirin Appointment in Dr Fernandez's office in 10 days to 2 weeks - general surgery Follow up with Dr. Del Real in 1-2 weeks for biopsy results and prednisone dosing Follow up with Dr. Bridges, ophthalmology. [phone] Pending Studies at Discharge: Yes (temporal artery biopsy - pathology) Stand-Alone Forms: My [employer], Smoking Cessation Medications and DC Order Prescriptions: New aspirin 81 mg Tablet,Delayed Release (Dr/Ec) 81 mg PO QAM Qty: 0 0RF oxycodone-acetaminophen [Percocet] 5-325 mg Tablet 1 - 2 tab PO Q4H PRN (Reason: pain) Qty: 10 0RF omeprazole 20 mg capsule,delayed release(DR/EC) 20 mg PO DAILY Qty: 30 0RF Rx Instructions: buy over the counter sulfamethoxazole-trimethoprim [Bactrim DS] 800-160 mg tablet See Rx Instructions .ROUTE .COMPLEX Qty: 12 0RF Rx Instructions: 1 tab orally three times a week prednisone 20 mg tablet 60 mg PO DAILY 14 Days Qty: 42 0RF atorvastatin 10 mg tablet 10 mg PO DAILY Qty: 30 0RF Continued losartan 100 mg tablet 100 mg PO QAM Calcium Magnesium 500 mg calcium -250 mg Tablet 1 tab PO BID metoprolol succinate 50 mg tablet extended release 24 hr 50 mg PO QAM [id number] oil-D3 [Fish Oil-Vit D3] 360 mg-1,200 mg -1,000 unit Capsule 1 cap PO AMPM hydroxyzine HCl 25 mg tablet 37.5 mg PO HS minocycline 50 mg capsule 50 mg PO BID Rx Instructions: take with food magnesium 250 mg Tablet 250 mg PO BID Held prednisolone acetate 1 % drops,suspension 1 drp OPR .PT HOLDING Hold Instructions: Resume on 03/30/24. discuss with optho whether to resume this Discontinued prednisone 10 mg tablet 15 mg PO QAM Discharge Orders: Discharge Order (Routine); Ordered 03/02/24 Ordered By: Genie Snider/Other Patient Handouts: Prediabetes, 5 Steps for Eating Healthier Admission Data Admit Date/Time: 02/28/24 02:26 Attending Provider: Genie Ambrocio Admit Provider: Brennen Hernandez Primary Care Provider: Abby Fritz Other Providers: Brennen Hernandez; Joni Mills; Patrick Fernandez Other Interventions: Discharge Summary Assessment (RN) Last Done: 03/02/24 11:52 Hospital Stay Data Consultations 02/28/24 00:19 ED Decision to Admit Stat 02/28/24 04:44 Consult Neurology Routine 02/29/24 08:12 Consult General Surgery Routine Procedures Performed Operation Date: 03/01/24 07:30 Actual Procedures p Bilateral Temporal Artery Biopsy(Bilateral) - Patrick Fernandez MD Diagnostic Imagining Performed 02/28/24 00:40 CT head/brain wo con Stat 02/28/24 02:06 MR angio head wo con Stat MR angio neck wo/w con Stat MRI Cervical [MR cervical spine wo con] Stat Pending Results Patient Have Any Pending Studies at Discharge: Yes (temporal artery biopsy - pathology) Discharge Instructions Given to Patient (Per Discharging Provider) Unfortunately, you've had right eye vision loss. Exam and imaging is consistent with AION. This can be caused by an ischemic problem (the small artery that feeds the surface of the optic nerve clogs up - like a stroke), and it can also be caused by giant cell arteritis In case of an ischemic event we want you to take a baby aspirin daily. Keep good control of your blood pressure and blood sugar. Resume your atorvastatin 10 mg daily For giant cell arteritis we treat with high dose steroids -continue prednisone 60 mg daily - Dr. Del Real will taper this based on the clinical situation and your biopsy results -bactrim 1 tab 3x a week as prophylaxis for infections while taking high dose steroids -omeprazole (prilosec) 20 mg daily for ulcer prophylaxis while taking steroids and aspirin Appointment in Dr Fernandez's office in 10 days to 2 weeks - general surgery Follow up with Dr. Del Real in 1-2 weeks for biopsy results and prednisone dosing Follow up with Dr. Bridges, ophthalmology. 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
[2024-03-03 19:06] LABS: Complement C3 117 mg/dL (83-193); Complement Total(CH50) 60 U/mL (31-60)
[2024-03-04 22:57] LABS: PTT LA Screen 36 sec (<=40)
[2024-03-06 00:18] LABS: Anti Cardiolipin Ab IgG <2.0 GPL-U/mL; Anti Cardiolipin Ab IgM 2.6 MPL-U/mL; B2 Glycoprotein IgG <2.0 U/mL (<20.0); B2 Glycoprotein IgM 3.2 U/mL (<20.0); CMV IgG Antibody <0.60 U/mL; CMV IgM Antibody <30.00 AU/mL; Parvovirus IgG 6.3 (<0.9); Parvovirus IgM 0.2 (<0.9)
== END 2024-03-02 13:00 | disposition home or self-care (01) | DRG 516 ==
LOC: ED 21:27 → SUATTDRO 02-28 02:26 → 2S 02-28 02:26 → 3N 02-29 20:59